=== PATIENT | male | born 1980 | race Caucasian/White ===

== ENCOUNTER 2021-12-24 03:53 | Inpatient (IN) ==
[2021-12-24] MEDS ORDERED: IOPAMIDOL 100 ML BOTTLE IV ONE (03:54)
[2021-12-24] MEDS ORDERED: cefTRIAXone 2 GM VIAL IM ONE (04:06)
[2021-12-24] MEDS ORDERED: 0.9 % SODIUM CHLORIDE 500 ML IV ONE (04:07)
--- NOTE | 2021-12-24 04:11 | Emergency Department Note ---
Male Urogenital HPI General Chief complaint: Skin/Abscess/Rash Stated complaint: cellulitis not going away Time Seen by Provider: 12/24/21 04:01 Source: patient Mode of arrival: ambulatory Limitations: no limitations History of Present Illness HPI Narrative: Narrative: Patient presents ED with complaints of worsening swelling of his penis and testicles x3 weeks. Patient states that a little over 2 weeks ago he was diagnosed with an infection of his scrotum. He states he completed antibiotics 2 days ago. He reports that the swelling got worse as well as the redness of his penis and of his abdomen. He denies fever, chills, nausea, vomiting, abdominal pain, dysuria, hematuria, urinary frequency, diarrhea, constipation. In reviewing patient's chart he had an ultrasound which was concerning for epididymitis. He was prescribed doxycycline 100 mg p.o. twice daily x10 days. He was supposed to follow-up with his PCP which he states he has not. In talking with patient is hard for him to keep his eyes open and follow direction. He appears to be intoxicated. He is a known methamphetamine user but he is denying use today. He also denies alcohol use today. Patient [place] any other alleviating or aggravating factors. Related Data Previous Rx's Medication Instructions Recorded furosemide 40 mg tablet 40 mg PO QDAY #30 tabs 12/24/20 lansoprazole 30 mg capsule,delayed 30 mg PO QDAY #30 caps 08/01/21 release (Prevacid) doxycycline monohydrate 100 mg 100 mg PO BID #20 caps 12/06/21 capsule Allergies Allergy/AdvReac Type Severity Reaction Status Date / Time No Known Drug Allergies Allergy Verified 12/02/21 11:52 Review of Systems ROS ROS Narrative: Narrative: All systems ED: reviewed and negative except as stated. [facility] Narrative Patient History Narrative: Narrative: Medical/Surgical/Family History All Active Problems (Updated 12/24/21 @ 10:42 by Reji Estrada DO) Laceration of finger of left hand (Acute) Fracture of hand (Acute) Toothache (Acute) Acute dyspnea (Acute) CHF (congestive heart failure) (Acute) Acute chest pain (Acute) Amphetamine abuse (Acute) Dyspepsia (Acute) Cellulitis (Acute) Left leg cellulitis (Acute) Rash and nonspecific skin eruption (Acute) Acute exacerbation of CHF (congestive heart failure) (Acute) History of amphetamine abuse (Acute) Edema, peripheral (Acute) Cellulitis of scrotum (Acute) Bilateral epididymitis (Acute) Sepsis (Acute) Cellulitis of scrotum (Acute) Edema of scrotum (Acute) Penile edema (Acute) Medical History Fracture of hand Laceration of finger of left hand Social History Smoking Status: Never smoker Exam Narrative Narrative: Narrative: General Limitations: no limitations General appearance: Present appears intoxicated Respiratory Respiratory: Present normal lung sounds bilaterally; Absent respiratory distress Cardiovascular Cardiovascular: Present normal rhythm and tachycardia Adbominal Abdominal: Present soft, tenderness, normal bowel sounds and other (Erythema on his abdomen with no tenderness palpation or warmth) : Present testicular tenderness, scrotal swelling (Severe) and other (Severe penile swelling); Absent circumcised Expanded : Present penile swelling and erythema Scrotal exam: testicular tenderness: bilateral Extremities Extremities: Present normal capillary refill Neurological Neurological: Present oriented X3 and normal gait Psychiatric Psychiatric: Present serious and poor eye contact Skin Skin: Present warm (WNL) and intact Course Course Course Narrative: Patient was evaluated for scrotal edema and redness. Physical and consistent with cellulitis. Did get a CT of the abdomen and pelvis with image reviewed mys elf with no signs of necrotizing fasciitis or gangrene. There is no crepitus in the area on exam. Ultrasound was obtained and could not really visualize the epididymis. Patient did meet sepsis criteria with leukocytosis, elevated lactic acid, tachycardic and source of infection. Due to his CHF we did not do 30 mL/kg of fluid instead we just did 1500. Did give him 80 mg of IV Lasix. Blood cultures were obtained and patient was started on IV vancomycin and Rocephin. Must be noted that throughout the stay patient was very hard to tolerate as he was combative and refusing treatment and excepting treatment. Again he does seem to be intoxicated with amphetamines. Patient was discussed with on-call hospitalist who has agreed to admit the patient for sepsis secondary to scrotal cellulitis and penile edema. Plan of care was discussed with patient expressed verbal understanding and agreement. Reevaluation(s) Reevaluation #1: Patient remains hemodynamic stable. No new complaints at this time. Time: 05:30 Consultations Consultation #1: Case discussed with hospitalist, Dr. Perales, who is graciously excepted patient Time: 10:30 Vital Signs Vital signs: Vital Signs Temperature 97.7 F 12/24/21 03:54 Pulse Rate 127 H 12/24/21 03:54 Respiratory Rate 17 12/24/21 03:54 Blood Pressure 123/83 12/24/21 03:54 Pulse Oximetry (%) 95 12/24/21 03:54 Oxygen Delivery Method 12/24/21 03:54 Temperature 97.7 F 12/24/21 03:54 Pulse Rate 118 H 12/24/21 09:34 Respiratory Rate 24 H 12/24/21 06:57 Blood Pressure 158/106 12/24/21 09:34 Pulse Oximetry (%) 93 12/24/21 09:34 Oxygen Delivery Method 12/24/21 03:54 MDM MDM Narrative Medical decision making narrative: Narrative: Differential Diagnosis Differential Diagnosis: Foreign years gangrene, epididymitis, scrotal swelling Medical Records Medical records reviewed: Yes I reviewed the patient's medical records. Lab Data Lab results reviewed: Yes I reviewed the patient's lab results. Result diagrams: 12/24/21 04:40 Labs: Lab Results 12/24/21 12/24/21 12/24/21 Range/Units 04:40 04:40 04:40 WBC 14.3 H (4.5-11.0) K/mcL RBC 4.91 (4.63-6.08) M/mcL Hgb 13.7 (13.7-17.5) g/dL Hct 44.2 (40.1-51.0) % POC Hct (41-55) MCV 90.0 (80.0-100.0) fL MCH 27.9 (26.0-34.0) pg MCHC 31.0 (31.0-36.0) g/dL RDW 16.8 H (11.5-14.5) % Plt Count 288 (140-440) K/mcL MPV 9.5 (8.8-12.5) fL Immature Gran % (Auto) 0.6 H (0.0-0.5) % Neut % (Auto) 81.1 H (38.0-78.0) % Lymph % (Auto) 12.2 L (15.5-49.0) % [place] % (Auto) 5.9 (1.0-12.0) % Eos % (Auto) 0.1 (0.0-7.0) % Baso % (Auto) 0.1 (0.0-2.0) % Lymph # (Auto) 1.74 (1.50-4.80) K/mcL [place] # (Auto) 0.84 (0.10-0.90) K/mcL Eos # (Auto) 0.01 (0.00-0.70) K/mcL Baso # (Auto) 0.02 (0.00-0.30) K/mcL Immature Gran # 0.09 H (0.00-0.05) K/mcl Absolute Neutrophils 11.58 H (1.80-8.00) K/mcL POC VBG pH (7.32-7.42) POC VBG pCO2 at Temp (41-51) POC VBG pO2 (25-40) POC VBG HCO3 (24-28) POC VBG Total CO2 (25-29) POC Venous O2 Sat (40-70) POC VBG Base Excess (-2-2) VBG Lactic Acid (0.5-2) POC Sodium (133-145) POC Potassium (3.3-5.1) POC Chloride (96-108) POC Total CO2 (22-30) POC BUN (6-20) POC Creatinine (0.6-1.2) POC Glucose (70-105) POC WB Ioniz Calcium (1.16-1.32) Procalcitonin 0.46 H (<0.10) ng/mL Urine Color Urine Appearance (Clear) Urine pH (5.0-9.0) Ur Specific [place] (1.000-1.035) Urine Protein (Negative) mg/dL Urine Glucose (UA) (Negative) mg/dL Urine Ketones (Negative) mg/dL Urine Occult Blood (Negative) mg/dL Urine Nitrate (Negative) Urine Bilirubin (Negative) mg/dL Urine Urobilinogen mg/dL Ur Leukocyte Esterase (Negative) /uL Urine RBC (0-3) /hpf Urine WBC (0-4) /hpf Ur Squamous Epith Cells (0-4) /hpf Urine Bacteria (0) /hpf Ur Culture Indicated? Urine Opiates Screen Ur Oxycodone Screen Urine Methadone Screen Ur Barbiturates Screen Ur Phencyclidine Scrn Ur Amphetamines Screen U Benzodiazepines Scrn Urine Cocaine Screen U Marijuana (THC) Screen Ethyl Alcohol mg/dL < 10.0 mg/dL Ethyl Alcohol g/dL < 0.010 (<0.010) gm/dL 12/24/21 12/24/21 12/24/21 Range/Units 04:40 04:41 07:25 WBC (4.5-11.0) K/mcL RBC (4.63-6.08) M/mcL Hgb (13.7-17.5) g/dL Hct (40.1-51.0) % POC Hct 47.0 (41-55) MCV (80.0-100.0) fL MCH (26.0-34.0) pg MCHC (31.0-36.0) g/dL RDW (11.5-14.5) % Plt Count (140-440) K/mcL MPV (8.8-12.5) fL Immature Gran % (Auto) (0.0-0.5) % Neut % (Auto) (38.0-78.0) % Lymph % (Auto) (15.5-49.0) % [place] % (Auto) (1.0-12.0) % Eos % (Auto) (0.0-7.0) % Baso % (Auto) (0.0-2.0) % Lymph # (Auto) (1.50-4.80) K/mcL [place] # (Auto) (0.10-0.90) K/mcL Eos # (Auto) (0.00-0.70) K/mcL Baso # (Auto) (0.00-0.30) K/mcL Immature Gran # (0.00-0.05) K/mcl Absolute Neutrophils (1.80-8.00) K/mcL POC VBG pH 7.47 H (7.32-7.42) POC VBG pCO2 at Temp 36.4 L (41-51) POC VBG pO2 23 L (25-40) POC VBG HCO3 26.4 (24-28) POC VBG Total CO2 27.0 (25-29) POC Venous O2 Sat 46.0 (40-70) POC VBG Base Excess 3.0 H (-2-2) VBG Lactic Acid 3.4 H (0.5-2) POC Sodium 131 L (133-145) POC Potassium 5.4 H (3.3-5.1) POC Chloride 98 (96-108) POC Total CO2 26.0 (22-30) POC BUN 26 H (6-20) POC Creatinine 1.6 H (0.6-1.2) POC Glucose 94 (70-105) POC WB Ioniz Calcium 1.01 L (1.16-1.32) Procalcitonin (<0.10) ng/mL Urine Color Urine Appearance (Clear) Urine pH (5.0-9.0) Ur Specific [place] (1.000-1.035) Urine Protein (Negative) mg/dL Urine Glucose (UA) (Negative) mg/dL Urine Ketones (Negative) mg/dL Urine Occult Blood (Negative) mg/dL Urine Nitrate (Negative) Urine Bilirubin (Negative) mg/dL Urine Urobilinogen mg/dL Ur Leukocyte Esterase (Negative) /uL Urine RBC (0-3) /hpf Urine WBC (0-4) /hpf Ur Squamous Epith Cells (0-4) /hpf Urine Bacteria (0) /hpf Ur Culture Indicated? Urine Opiates Screen None detected Ur Oxycodone Screen None detected Urine Methadone Screen None detected Ur Barbiturates Screen None detected Ur Phencyclidine Scrn None detected Ur Amphetamines Screen Suspect positive A U Benzodiazepines Scrn None detected Urine Cocaine Screen None detected U Marijuana (THC) Screen None detected Ethyl Alcohol mg/dL mg/dL Ethyl Alcohol g/dL (<0.010) gm/dL 12/24/21 12/24/21 12/24/21 Range/Units 07:25 07:30 08:13 WBC (4.5-11.0) K/mcL RBC (4.63-6.08) M/mcL Hgb (13.7-17.5) g/dL Hct (40.1-51.0) % POC Hct (41-55) MCV (80.0-100.0) fL MCH (26.0-34.0) pg MCHC (31.0-36.0) g/dL RDW (11.5-14.5) % Plt Count (140-440) K/mcL MPV (8.8-12.5) fL Immature Gran % (Auto) (0.0-0.5) % Neut % (Auto) (38.0-78.0) % Lymph % (Auto) (15.5-49.0) % [place] % (Auto) (1.0-12.0) % Eos % (Auto) (0.0-7.0) % Baso % (Auto) (0.0-2.0) % Lymph # (Auto) (1.50-4.80) K/mcL [place] # (Auto) (0.10-0.90) K/mcL Eos # (Auto) (0.00-0.70) K/mcL Baso # (Auto) (0.00-0.30) K/mcL Immature Gran # (0.00-0.05) K/mcl Absolute Neutrophils (1.80-8.00) K/mcL POC VBG pH 7.48 H (7.32-7.42) POC VBG pCO2 at Temp 36.9 L (41-51) POC VBG pO2 21 L (25-40) POC VBG HCO3 27.5 (24-28) POC VBG Total CO2 29.0 (25-29) POC Venous O2 Sat 40.0 (40-70) POC VBG Base Excess 4.0 H* (-2-2) VBG Lactic Acid 3.0 H 3.7 H (0.5-2) POC Sodium (133-145) POC Potassium (3.3-5.1) POC Chloride (96-108) POC Total CO2 (22-30) POC BUN (6-20) POC Creatinine (0.6-1.2) POC Glucose (70-105) POC WB Ioniz Calcium (1.16-1.32) Procalcitonin (<0.10) ng/mL Urine Color Yellow Urine Appearance Hazy A (Clear) Urine pH 7.0 (5.0-9.0) Ur Specific [place] 1.006 (1.000-1.035) Urine Protein Negative (Negative) mg/dL Urine Glucose (UA) Negative (Negative) mg/dL Urine Ketones Negative (Negative) mg/dL Urine Occult Blood 0.20 (Negative) mg/dL Urine Nitrate Negative (Negative) Urine Bilirubin Negative (Negative) mg/dL Urine Urobilinogen Negative mg/dL Ur Leukocyte Esterase 500 A (Negative) /uL Urine RBC 1 (0-3) /hpf Urine WBC 7 H (0-4) /hpf Ur Squamous Epith Cells 5 H (0-4) /hpf Urine Bacteria None (0) /hpf Ur Culture Indicated? No Urine Opiates Screen Ur Oxycodone Screen Urine Methadone Screen Ur Barbiturates Screen Ur Phencyclidine Scrn Ur Amphetamines Screen U Benzodiazepines Scrn Urine Cocaine Screen U Marijuana (THC) Screen Ethyl Alcohol mg/dL mg/dL Ethyl Alcohol g/dL (<0.010) gm/dL Core Measures AMI Core Measures Followed: Yes Discharge Plan Patient/Caregiver Discharge Instructions Pt seen by [employer]/PA only: No Clinical Impression: Sepsis, Cellulitis of scrotum, Edema of scrotum, Penile edema Patient Disposition: Xfer As Outpt/Obs ([facility]) Condition: Fair Follow up with: No,PCP [Primary Care Provider] - Prescriptions: No Action furosemide 40 mg tablet 40 mg PO QDAY Qty: 30 0RF lansoprazole [Prevacid] 30 mg capsule,delayed release(DR/EC) 30 mg PO QDAY Qty: 30 0RF doxycycline monohydrate 100 mg capsule 100 mg PO BID Qty: 20 0RF
[2021-12-24 04:45] LABS: POC Calcium, Ionized 1.01 (1.16-1.32); POC Creatinine 1.6 (0.6-1.2); POC Potassium 5.4 (3.3-5.1)
[2021-12-24] MEDS ORDERED: FUROSEMIDE 40 MG/4 ML VIAL IV ONE ×2 (04:58→07:10)
[2021-12-24 05:20] LABS: Basophils # (Auto) 0.02 K/mcL (0.00-0.30); Basophils % (Auto) 0.1 % (0.0-2.0); Eosinophils # (Auto) 0.01 K/mcL (0.00-0.70); Eosinophils % (Auto) 0.1 % (0.0-7.0); Hematocrit 44.2 % (40.1-51.0); Hemoglobin 13.7 g/dL (13.7-17.5); Lymphocytes # (Auto) 1.74 K/mcL (1.50-4.80); Lymphocytes % (Auto) 12.2 % (15.5-49.0); Mean Platelet Volume 9.5 fL (8.8-12.5); Monocytes # (Auto) 0.84 K/mcL (0.10-0.90); Monocytes % (Auto) 5.9 % (1.0-12.0); Neutrophils % (Auto) 81.1 % (38.0-78.0); Platelet Count 288 K/mcL (140-440); RBC 4.91 M/mcL (4.63-6.08); Red Cell Distribution Width 16.8 % (11.5-14.5); WBC 14.3 K/mcL (4.5-11.0)
[2021-12-24 05:33] LABS: Alcohol, Blood < 10.0 mg/dL; Alcohol,Blood < 0.010 gm/dL (<0.010)
[2021-12-24] MEDS ORDERED: 0.9 % SODIUM CHLORIDE 1,000 ML IV ONE (06:04)
[2021-12-24] MEDS ORDERED: cefTRIAXone 2 GM in DEXTROSE 5% IN WATER 50 ML IV ONE (06:04)
[2021-12-24] MEDS ORDERED: VANCOMYCIN 1,000 MG in 0.9 % SODIUM CHLORIDE 250 ML IV ONE (06:04)
[2021-12-24] MEDS ORDERED: VANCOMYCIN 2,000 MG in 0.9 % SODIUM CHLORIDE 500 ML IV ONE (06:27)
--- NOTE | 2021-12-24 07:06 | Cat Scan Report ---
INDICATION: abd and scotral cellulitis and edema COMPARISON: Previous scrotal ultrasound dated 12/06/2021 TECHNIQUE: Axial images were obtained through the abdomen and pelvis. Sagittally and coronally reformatted images. 80 mL Isovue 370 injected intravenously. Oral contrast material was not administered FINDINGS: Lung bases:There is generalized cardiomegaly. There is no pericardial effusion. No pleural effusion. There are pulmonary parenchymal densities at the right base. There are small noncalcified nodules. No parenchymal consolidation. No evidence for pneumonia Liver:Mildly low density liver compared to the spleen. Liver contour is smooth. No nodularity. There is no focal hepatic mass. Gallbladder, bilary:No calcified gallstones. No gallbladder wall thickening. No dilated intra or extrahepatic bile ducts. Spleen:No splenomegaly. Normal enhancement of splenic and portal veins. Pancreas:No pancreatic mass. No peripancreatic abnormality Adrenal glands:Negative Kidneys,ureters,bladder:No solid renal mass. No hydronephrosis. No obstructing or nonobstructing calculi. There is a 4 cm left upper pole renal cyst No hydroureter. No ureteral calculus. No bladder stone. No detectable bladder mass. Gastrointestinal:No detectable colonic mass. There is no diverticulitis. Negative small bowel. No mechanical small bowel obstruction. No bowel wall thickening. No focal abnormality. There is no evidence for bowel ischemia Negative stomach and duodenum. No focal abnormality. Appendix: The appendix is difficult to visualize but there is no evidence for appendicitis Vascular:Abdominal aorta is negative. No atherosclerotic calcification. There is no abdominal aortic aneurysm. Superior mesenteric artery and inferior mesenteric artery appear normal. There is luminal irregularity of the celiac trunk. There is luminal narrowing at but a well-defined stenosis is not identified. Celiac trunk is patent. There is no significant atherosclerotic plaque elsewhere. Vasculitis is possible. Clinical correlation for symptoms of mesenteric ischemia are recommended. Left renal artery is also slightly irregular but patent. Vasculitis is possible Lymphatic:No retroperitoneal or mesenteric adenopathy Mesentery, peritoneum: There is free intraperitoneal fluid. There is perihepatic and perisplenic fluid. There is a small amount of pelvic fluid. There is fluid within the right lower quadrant. There is no discrete intra-abdominal abscess. There is no pneumoperitoneum Reproductive:Prostate is enlarged Musculoskeletal:No lumbar compression fractures. Sacrum and pelvis are negative. No hip fracture. There is extensive subcutaneous edema throughout the lower chest, abdomen, and pelvis. No focal subcutaneous abscess identified. There is very severe subcutaneous edema within the scrotum with severe scrotal enlargement. Findings are consistent with anasarca. A focal abscess is not identified. There is no soft tissue gas. No evidence for necrotizing fasciitis IMPRESSION: 1. Severe and extensive subcutaneous edema with marked scrotal edema and enlargement. No soft tissue gas or focal abscess. No evidence for necrotizing fasciitis 2. Free intraperitoneal fluid. No focal fluid collection. No intra-abdominal abscess 3. Irregularity of the celiac trunk and left renal artery. Vasculitis is possible. 4. Low density liver without focal intrahepatic abnormality The exam was performed using radiation dose optimization techniques including, but not limited to, automated exposure control, adjustment of the mA and/or kV according to patient size and use of iterative reconstruction technique. Interpreted and Authenticated by: Tim Bolden 12/24/21
[2021-12-24 08:55] LABS: Amphetamine Screen,Urine Suspect positive; Barbiturate Screen,Urine None detected; Benzodiazepines Screen,Urine None detected; Cannabinoid Screen,Urine None detected; Cocaine Screen,Urine None detected; Opiate Screen,Urine None detected; Oxycodone, Urine Screen None detected; Phencyclidine Screen,Urine None detected
[2021-12-24 09:25] LABS: Appearance,Urine HAZY (Clear); Bilirubin,Urine Negative (Negative); Color,Urine YELLOW; Culture Indicated,Urine No; Glucose,Urine (UA) Negative (Negative); Ketones,Urine Negative (Negative); Leukocyte Esterase,Urine 500 /uL (Negative); Nitrate,Urine Negative (Negative); Protein,Urine Negative (Negative); Specific Gravity,Urine 1.006 (1.000-1.035); Urine RBC 1 /hpf (0-3); Urine Squamous Epithelial Cell 5 /hpf (0-4); Urine WBC 7 /hpf (0-4); Urobilinogen,Urine Negative
--- NOTE | 2021-12-24 09:36 | Ultrasound Report ---
INDICATION: swelling, tenderness TECHNIQUE: Grayscale and color flow Doppler spectral imaging COMPARISON: Previous examination dated 12/06/2021 FINDINGS: Right Epididymis: Right epididymis [id number] x 15 x 8 mm.. Epididymis is suboptimally visualized. There is no hypervascularity. No focal abnormality. Right Testicle: Right testicle measures4.5 x 2.7 x 3.0 cm Normal right testicular parenchyma. No solid or cystic mass. Normal vascularity. No evidence for orchitis. Left Epididymis: Left epididymis [id number] x 14 x 9 mm epididymis is suboptimally visualized and evaluated. There is no hypervascularity. No focal abnormality Left Testicle: Left testicle measures4.5 x 3.0 x 2.6 cm Normal left testicular parenchyma. No solid or cystic mass. Normal vascularity. No evidence for orchitis. Scrotal: There is severe diffuse scrotal edema and thickening. No focal abscess. No focal mass. No shadowing abnormalities to indicate gas. Appearance is consistent with scrotal edema or cellulitis. No significant hydrocele. IMPRESSION: 1. Normal testicles. Epididymis is suboptimally evaluated bilaterally but there is no definite abnormality 2. Severe scrotal edema or cellulitis and marked scrotal thickening. Interpreted and Authenticated by: Tim Bolden 12/24/21
--- NOTE | 2021-12-24 11:11 | Internal Med History&Physical ---
HPI History of Present Illness Patient information: Note initiated : 12/24/21 at 10:59 am Service Date, if different from initiated Date: [] Patient: Wilner Romero 41 y/o M admitted on for cellulitis not going away. Chief Complaint: [abdominal and scrotal swelling and pain] Chief complaint: abdominal and scrotal swelling and pain History of present illness: Mr. Romero is a 41 year old M history of meth use, CHF, presenting with abdominal and scrotal swelling and pain. He presented to our ED 2 weeks ago for similar complaints, was being diagnosed with bilateral epididymis, and was being discharged home with oral doxycycline. He stated that he finished the antibiotics but the swelling and pain persist and get worse so he returned to our ED today for reevaluation and treatments. He is committing of lower abdominal and scrotal swelling and pain, the nature of the pain is " distention", mild to moderate. He denies any fever, chills, or diaphoresis. He is also commenting of bilateral leg swellings. He is adamant about his methamphetamine use and he did smoke it earlier this morning. Denies any shortness of breath. Denies any chest pain or palpitations. Vital signs significant for tachycardia heart rate in the 1 teens beats per minute, tachypnea rate of breathing up to the mid 30s breaths per minute. Labs significant for leukocytosis with WBC 14.3. Lactic acid 3.0. Potasssium 5.4. PCO creatinine 1.6. Procalcitonin 0.46. UA suggesting the presence of urinary tract infections. Urine drug screen positive for methamphetamine. CT abdomen pelvis showing severe and extensive subcutaneous edema with marked scrotal edema and enlargement. No soft tissue gas or focal abscess. No evidence for necrotizing fasciitis. Scrotal ultrasound showing normal testicles. Epididymis is suboptimally evaluated bilaterally but there is no definite abnormalities. Severe scrotal edema or cellulitis and marked scrotal thickening. Constitutional Constitutional: Absent chills, excessive sweating, fatigue, fever(s) or weakness EENT Eyes: Absent blurry vision, change in vision, loss of vision or other visual disturbances Ears: Absent decreased hearing or tinnitus Nose, mouth and throat: Absent abnormal hearing, dry mouth, headache(s), nasal congestion or sore throat Cardiovascular Cardiovascular: Absent chest pain, chest pain at rest, edema, irregular heart rhythm or palpatations Respiratory Respiratory: Absent cough, dyspnea or wheezing Gastrointestinal Gastrointestinal: Present abdominal pain; Absent constipation, diarrhea, nausea or vomiting Additional comments: abdominal distension Genitourinary Additional comments: Scrotal pain and swelling Musculoskeletal Musculoskeletal: Absent back pain, deformity, limited range of motion, muscle cramps, muscle weakness or numbness Integumentary Integumentary: Absent lesions, rash or wounds Neurological Neurological: Absent focal weakness, headache(s) or numbness Psychiatric Psychiatric: Absent anxiety, depression or hallucinations PFSH PFSH All Active Problems (Updated 12/24/21 @ 11:07 by Placido Perales MD) Obesity (BMI 35.0-39.9 without comorbidity) (Acute) Hyperkalemia (Acute) Stage 1 acute kidney injury (Acute) UTI (urinary tract infection) (Acute) Methamphetamine abuse (Acute) Clinical sepsis (Acute) Laceration of finger of left hand (Acute) Fracture of hand (Acute) Toothache (Acute) Acute dyspnea (Acute) CHF (congestive heart failure) (Acute) Acute chest pain (Acute) Amphetamine abuse (Acute) Dyspepsia (Acute) Cellulitis (Acute) Left leg cellulitis (Acute) Rash and nonspecific skin eruption (Acute) Acute exacerbation of CHF (congestive heart failure) (Acute) History of amphetamine abuse (Acute) Edema, peripheral (Acute) Cellulitis of scrotum (Acute) Bilateral epididymitis (Acute) Sepsis (Acute) Cellulitis of scrotum (Acute) Edema of scrotum (Acute) Penile edema (Acute) Medical History Fracture of hand Laceration of finger of left hand Social History smoking status: Never smoker MEDS/ALLERGIES Home Medications and Allergies Home Medications Medication Instructions Recorded Confirmed Type furosemide 40 mg tablet 40 mg PO QDAY #30 tabs 12/24/20 Rx lansoprazole 30 mg capsule,delayed 30 mg PO QDAY #30 caps 08/01/21 Rx release (Prevacid) doxycycline monohydrate 100 mg 100 mg PO BID #20 caps 12/06/21 Rx capsule Allergies Allergy/AdvReac Type Severity Reaction Status Date / Time No Known Drug Allergies Allergy Verified 12/02/21 11:52 EXAM Constitutional Vitals: Temp Pulse Resp BP Pulse Ox O2 Del Method 36.5 C 118 H 24 H 158/106 93 12/24/21 03:54 12/24/21 09:34 12/24/21 06:57 12/24/21 09:34 12/24/21 09:34 12/24/21 03:54 General appearance: cooperative, mild distress and obese Head Head exam: Present atraumatic and normocephalic Eye Eye exam: Present EOMI and PERRL ENT ENT exam: Present mucous membranes moist, normal exam and normal external ear exam Neck Neck exam: Present normal inspection; Absent lymphadenopathy, tenderness or thyromegaly Respiratory Respiratory exam: Absent accessory muscle use, respiratory distress or wheezes Cardiovascular Cardiovascular exam: Present normal rate and rhythm; Absent JVD GI/Abdominal GI/Abdominal exam: Present normal bowel sounds, soft, distended and tenderness; Absent organomegaly Rectal Rectal exam: Present deferred exam: Present scrotal swelling and testicular tenderness; Absent normal inspection External exam: Present erythema and swelling; Absent normal external exam Extremities Exam Extremities exam: Present full ROM, normal capillary refill, normal inspection and pedal edema; Absent tenderness Neurological Exam Neurological exam: Present alert, CN II-XII intact and oriented X3; Absent motor sensory deficit Psychiatric Psychiatric exam: Present normal affect and normal mood; Absent anxious or depressed Skin Skin exam: Present dry, erythema, intact and warm; Absent abrasion or vesicles DATA Data Completed and Pending Labs: Labs from last 24 hours 12/24/21 12/24/21 12/24/21 10:50 08:13 07:30 WBC RBC Hgb Hct POC Hct MCV MCH MCHC RDW Plt Count MPV Immature Gran % (Auto) Neut % (Auto) Lymph % (Auto) Gage % (Auto) Eos % (Auto) Baso % (Auto) Lymph # (Auto) Gage # (Auto) Eos # (Auto) Baso # (Auto) Immature Gran # Absolute Neutrophils POC VBG pH 7.48 H POC VBG pCO2 at Temp 36.9 L POC VBG pO2 21 L POC VBG HCO3 27.5 POC VBG Total CO2 29.0 POC Venous O2 Sat 40.0 POC VBG Base Excess 4.0 H* VBG Lactic Acid Pending 3.7 H 3.0 H POC Sodium POC Potassium POC Chloride POC Total CO2 POC BUN POC Creatinine POC Glucose POC WB Ioniz Calcium Procalcitonin Urine Color Urine Appearance Urine pH Ur Specific Lang[place] Urine Protein Urine Glucose (UA) Urine Ketones Urine Occult Blood Urine Nitrate Urine Bilirubin Urine Urobilinogen Ur Leukocyte Esterase Urine RBC Urine WBC Ur Squamous Epith Cells Urine Bacteria Ur Culture Indicated? Urine Opiates Screen Ur Opiates Confirm Ur Oxycodone Screen U Oxycod/Oxymor Confirm Urine Methadone Screen Ur Methadone Confirm Ur Barbiturates Screen Ur Barbiturate Confirm Ur Phencyclidine Scrn Urine PCP Confirm Ur Amphetamines Screen U Amphetamines Confirm U Benzodiazepines Scrn Ur Benzodiazepine, Qnt Urine Cocaine Screen Urine Cocaine Confirm U Cannabinoids Confirm U Marijuana (THC) Screen Ethyl Alcohol mg/dL Ethyl Alcohol g/dL 12/24/21 12/24/21 12/24/21 07:25 07:25 04:41 WBC RBC Hgb Hct POC Hct MCV MCH MCHC RDW Plt Count MPV Immature Gran % (Auto) Neut % (Auto) Lymph % (Auto) Gage % (Auto) Eos % (Auto) Baso % (Auto) Lymph # (Auto) Gage # (Auto) Eos # (Auto) Baso # (Auto) Immature Gran # Absolute Neutrophils POC VBG pH 7.47 H POC VBG pCO2 at Temp 36.4 L POC VBG pO2 23 L POC VBG HCO3 26.4 POC VBG Total CO2 27.0 POC Venous O2 Sat 46.0 POC VBG Base Excess 3.0 H VBG Lactic Acid 3.4 H POC Sodium POC Potassium POC Chloride POC Total CO2 POC BUN POC Creatinine POC Glucose POC WB Ioniz Calcium Procalcitonin Urine Color Yellow Urine Appearance Hazy A Urine pH 7.0 Ur Specific Lang[place] 1.006 Urine Protein Negative Urine Glucose (UA) Negative Urine Ketones Negative Urine Occult Blood 0.20 Urine Nitrate Negative Urine Bilirubin Negative Urine Urobilinogen Negative Ur Leukocyte Esterase 500 A Urine RBC 1 Urine WBC 7 H Ur Squamous Epith Cells 5 H Urine Bacteria None Ur Culture Indicated? No Urine Opiates Screen None detected Ur Opiates Confirm Pending Ur Oxycodone Screen None detected U Oxycod/Oxymor Confirm Pending Urine Methadone Screen None detected Ur Methadone Confirm Pending Ur Barbiturates Screen None detected Ur Barbiturate Confirm Pending Ur Phencyclidine Scrn None detected Urine PCP Confirm Pending Ur Amphetamines Screen Suspect positive A U Amphetamines Confirm Pending U Benzodiazepines Scrn None detected Ur Benzodiazepine, Qnt Pending Urine Cocaine Screen None detected Urine Cocaine Confirm Pending U Cannabinoids Confirm Pending U Marijuana (THC) Screen None detected Ethyl Alcohol mg/dL Ethyl Alcohol g/dL 12/24/21 12/24/21 12/24/21 04:40 04:40 04:40 WBC RBC Hgb Hct POC Hct 47.0 MCV MCH MCHC RDW Plt Count MPV Immature Gran % (Auto) Neut % (Auto) Lymph % (Auto) Gage % (Auto) Eos % (Auto) Baso % (Auto) Lymph # (Auto) Gage # (Auto) Eos # (Auto) Baso # (Auto) Immature Gran # Absolute Neutrophils POC VBG pH POC VBG pCO2 at Temp POC VBG pO2 POC VBG HCO3 POC VBG Total CO2 POC Venous O2 Sat POC VBG Base Excess VBG Lactic Acid POC Sodium 131 L POC Potassium 5.4 H POC Chloride 98 POC Total CO2 26.0 POC BUN 26 H POC Creatinine 1.6 H POC Glucose 94 POC WB Ioniz Calcium 1.01 L Procalcitonin 0.46 H Urine Color Urine Appearance Urine pH Ur Specific [place] Urine Protein Urine Glucose (UA) Urine Ketones Urine Occult Blood Urine Nitrate Urine Bilirubin Urine Urobilinogen Ur Leukocyte Esterase Urine RBC Urine WBC Ur Squamous Epith Cells Urine Bacteria Ur Culture Indicated? Urine Opiates Screen Ur Opiates Confirm Ur Oxycodone Screen U Oxycod/Oxymor Confirm Urine Methadone Screen Ur Methadone Confirm Ur Barbiturates Screen Ur Barbiturate Confirm Ur Phencyclidine Scrn Urine PCP Confirm Ur Amphetamines Screen U Amphetamines Confirm U Benzodiazepines Scrn Ur Benzodiazepine, Qnt Urine Cocaine Screen Urine Cocaine Confirm U Cannabinoids Confirm U Marijuana (THC) Screen Ethyl Alcohol mg/dL < 10.0 Ethyl Alcohol g/dL < 0.010 12/24/21 04:40 WBC 14.3 H RBC 4.91 Hgb 13.7 Hct 44.2 POC Hct MCV 90.0 MCH 27.9 MCHC 31.0 RDW 16.8 H Plt Count 288 MPV 9.5 Immature Gran % (Auto) 0.6 H Neut % (Auto) 81.1 H Lymph % (Auto) 12.2 L Gage % (Auto) 5.9 Eos % (Auto) 0.1 Baso % (Auto) 0.1 Lymph # (Auto) 1.74 Gage # (Auto) 0.84 Eos # (Auto) 0.01 Baso # (Auto) 0.02 Immature Gran # 0.09 H Absolute Neutrophils 11.58 H POC VBG pH POC VBG pCO2 at Temp POC VBG pO2 POC VBG HCO3 POC VBG Total CO2 POC Venous O2 Sat POC VBG Base Excess VBG Lactic Acid POC Sodium POC Potassium POC Chloride POC Total CO2 POC BUN POC Creatinine POC Glucose POC WB Ioniz Calcium Procalcitonin Urine Color Urine Appearance Urine pH Ur Specific [place] Urine Protein Urine Glucose (UA) Urine Ketones Urine Occult Blood Urine Nitrate Urine Bilirubin Urine Urobilinogen Ur Leukocyte Esterase Urine RBC Urine WBC Ur Squamous Epith Cells Urine Bacteria Ur Culture Indicated? Urine Opiates Screen Ur Opiates Confirm Ur Oxycodone Screen U Oxycod/Oxymor Confirm Urine Methadone Screen Ur Methadone Confirm Ur Barbiturates Screen Ur Barbiturate Confirm Ur Phencyclidine Scrn Urine PCP Confirm Ur Amphetamines Screen U Amphetamines Confirm U Benzodiazepines Scrn Ur Benzodiazepine, Qnt Urine Cocaine Screen Urine Cocaine Confirm U Cannabinoids Confirm U Marijuana (THC) Screen Ethyl Alcohol mg/dL Ethyl Alcohol g/dL A/P Assessment and plan (1) Clinical sepsis: Status: Acute (2) CHF (congestive heart failure): Status: Acute (3) Methamphetamine abuse: Status: Acute (4) Cellulitis of scrotum: Status: Acute (5) UTI (urinary tract infection): Status: Acute (6) Stage 1 acute kidney injury: Status: Acute (7) Hyperkalemia: Status: Acute (8) Obesity (BMI 35.0-39.9 without comorbidity): Status: Acute Narrative A/P Narrative: Assessment and Plans: 1. Clinical sepsis secondary to scrotal cellulitis and UTI: Inpatient med surg Serial lactic acid Procalcitonin Blood culture Urine culture MRSA screening cbc w/ auto diff in the morning to trend WBC Tylenol Oxycodone Dilaudid Vancomycin Zosyn 2. h/o CHF: Lasix 20mg IV BID for the abdominal, scrotal, and bilateral legs swelling 3. Stage 1 acute kidney injury: Avoid nephrotoxic agents Saline lock with Lasix CMP in the morning to trend kidney functions 4. Methamphetamine abuse: Continue to monitor for any associated withdrawal symptoms 5. 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 Hyperkalemia: Lasix 20mg IV BID Repeat CMP in the morning to trend serum potassium level GI ppx: not currently indicated DVT ppx: Heparin Code status: Full Prognosis: guarded Disposition: inpatient med surg Time Spent With Patient Time: Total time spent is greater than 50% in coordination of care (as documented) at patient's floor/unit and/or counseling patient:
[2021-12-24] MEDS ORDERED: KETOROLAC 30 MG/ML VIAL IV PRN (12:44)
[2021-12-24] MEDS ORDERED: ONDANSETRON 4 MG/2 ML VIAL IV PRN (12:44)
[2021-12-24] MEDS ORDERED: VANCOMYCIN PER PHARMACY IV SCH (12:44)
[2021-12-24] MEDS ORDERED: HYDROmorphone 0.5 MG/0.5 ML SYRINGE IV PRN (12:44)
[2021-12-24] MEDS ORDERED: ACETAMINOPHEN 325 MG TABLET PO PRN (12:44)
[2021-12-24] MEDS ORDERED: IPRATROPIUM/ALBUTEROL 3 ML AMPUL.NEB NEB PRN (12:44)
[2021-12-24] MEDS: PIPERACILLIN SODIUM/TAZOBACTAM 3.375 GM in DEXTROSE 5% IN WATER 50 ML IV SCH ×3 (13:50→23:55)
[2021-12-24] MEDS: oxyCODONE HCL 5 MG TABLET PO PRN (13:52)
[2021-12-24] MEDS: 0.9 % SODIUM CHLORIDE 10 ML SYRINGE IV SCH ×2 (14:58→20:08)
[2021-12-24] MEDS: FUROSEMIDE 20 MG/2 ML VIAL IV SCH (15:45)
[2021-12-24] MEDS: DOCUSATE SODIUM 100 MG CAPSULE PO SCH (20:08)
[2021-12-24] MEDS: VANCOMYCIN 1,500 MG in 0.9 % SODIUM CHLORIDE 500 ML IV SCH (20:08)
[2021-12-24] MEDS: HEPARIN 5,000 UNIT/ML VIAL SQ SCH (20:08)
[2021-12-24] MEDS: SENNOSIDES 1 TABLET PO SCH (20:08)
[2021-12-24] MEDS ORDERED: ZOLPIDEM 5 MG TABLET PO PRN (21:00)
[2021-12-25] MEDS: oxyCODONE HCL 5 MG TABLET PO PRN (05:21)
[2021-12-25] MEDS: 0.9 % SODIUM CHLORIDE 10 ML SYRINGE IV SCH ×3 (05:22→20:34)
[2021-12-25] MEDS: PIPERACILLIN SODIUM/TAZOBACTAM 3.375 GM in DEXTROSE 5% IN WATER 50 ML IV SCH ×3 (05:22→16:37)
[2021-12-25 06:41] LABS: Basophils # (Auto) 0.01 K/mcL (0.00-0.30); Basophils % (Auto) 0.1 % (0.0-2.0); Eosinophils % (Auto) 1.2 % (0.0-7.0); Hematocrit 38.8 % (40.1-51.0); Lymphocytes # (Auto) 0.98 K/mcL (1.50-4.80); Lymphocytes % (Auto) 11.5 % (15.5-49.0); Mean Cell Volume 89.8 fL (80.0-100.0); Mean Corpuscular HGB Conc 30.9 g/dL (31.0-36.0); Mean Platelet Volume 9.4 fL (8.8-12.5); Monocytes # (Auto) 0.57 K/mcL (0.10-0.90); Monocytes % (Auto) 6.7 % (1.0-12.0); Neutrophils % (Auto) 79.9 % (38.0-78.0); Platelet Count 248 K/mcL (140-440); RBC 4.32 M/mcL (4.63-6.08); Red Cell Distribution Width 17.1 % (11.5-14.5); WBC 8.5 K/mcL (4.5-11.0)
[2021-12-25 06:57] LABS: ALT/SGPT 52 U/L (<40); AST/SGOT 77 U/L (<40); Albumin 3.1 gm/dL (3.2-5.2); Alkaline Phosphatase 118 U/L (39-117); Bilirubin,Total 2.1 mg/dL (0.1-1.0); Blood Urea Nitrogen 28 mg/dL (6-20); Calcium 8.8 mg/dL (8.6-10.4); Carbon Dioxide 26 mmol/L (22-30); Chloride 92 mmol/L (96-108); Globulin 3.2 gm/dL (2.2-3.7); Glomerular Filtration Rate 62; Glucose 102 mg/dL (70-105)
[2021-12-25 06:58] LABS: Phosphorous 3.7 mg/dL (2.5-4.5)
[2021-12-25] MEDS: HEPARIN 5,000 UNIT/ML VIAL SQ SCH ×2 (08:22→20:35)
[2021-12-25] MEDS: DOCUSATE SODIUM 100 MG CAPSULE PO SCH ×2 (08:22→20:34)
[2021-12-25] MEDS: FUROSEMIDE 20 MG/2 ML VIAL IV SCH ×2 (08:22→15:30)
[2021-12-25] MEDS: MUPIROCIN OINT 2% 22GM NARES SCH ×2 (08:23→20:33)
[2021-12-25] MEDS: VANCOMYCIN 1,500 MG in 0.9 % SODIUM CHLORIDE 500 ML IV SCH ×2 (08:59→21:33)
--- NOTE | 2021-12-25 10:36 | Internal Med Progress Note ---
SUBJECTIVE Subjective Patient information: Note initiated : 12/25/21 at 10:32 am Service Date, if different from initiated Date: [] Patient: Wilner Romero 41 y/o M admitted on 12/24/21 for cellulitis not going away. Chief Complaint: [] Interval history: Mr. Romero is a 41 year old M history of meth use, CHF, presenting with abdominal and scrotal swelling and pain. He presented to our ED 2 weeks ago for similar complaints, was being diagnosed with bilateral epididymis, and was being discharged home with oral doxycycline. He stated that he finished the antibiotics but the swelling and pain persist and get worse so he returned to [facility] ED today for reevaluation and treatments. He is committing of lower abdominal and scrotal swelling and pain, the nature of the pain is " distention", mild to moderate. He denies any fever, chills, or diaphoresis. He is also commenting of bilateral leg swellings. He is adamant about his methamphetamine use and he did smoke it earlier this morning. Denies any shortness of breath. Denies any chest pain or palpitations. Vital signs significant for tachycardia heart rate in the 1 teens beats per minute, tachypnea rate of breathing up to the mid 30s breaths per minute. Labs significant for leukocytosis with WBC 14.3. Lactic acid 3.0. Potasssium 5.4. PCO creatinine 1.6. Procalcitonin 0.46. UA suggesting the presence of urinary tract infections. Urine drug screen positive for methamphetamine. CT abdomen pelvis showing severe and extensive subcutaneous edema with marked scrotal edema and enlargement. No soft tissue gas or focal abscess. No evidence for necrotizing fasciitis. Scrotal ultrasound showing normal testicles. Epididymis is suboptimally evaluated bilaterally but there is no definite abnormalities. Severe scrotal edema or cellulitis and marked scrotal thickening. 12/25: Afebrile overnight. Blood and urine culture no growth today. Patient is coming of mild to moderate lower abdominal pain as well as scrotal swelling and pain. Denies any fever chills or diaphoresis. He just being tired. Continue diuretics with IV Lasix. Continue broad-spectrum antibiotics with vancomycin and Zosyn. 2000 cc/day fluid restrictions. Constitutional Vitals: Vital Signs Temp Pulse Resp BP Pulse Ox O2 Del Method 37.0 C 110 H 18 118/94 91 12/25/21 07:18 12/25/21 07:18 12/25/21 07:18 12/25/21 07:18 12/25/21 07:18 12/25/21 07:18 Period Temp Pulse Resp BP Sys/Triplett Pulse Ox O2 Del Method O2 Flow Rate Last 24 Hr 36.4 C-37.0 C 109-118 18-24 114-158/77-106 91-96 Room Air-Room Air Intake and Output 12/24/21 12/25/21 12/25/21 21:59 05:59 13:59 Intake Total 2090 580 480 Balance 2090 580 480 Weight 125.277 kg 125.277 kg Patient Weight 12/26/21 05:59 Weight 125.277 kg Intake & Output: Intake & Output 12/24/21 12/25/21 12/25/21 21:59 05:59 13:59 Intake Total 2090 580 480 Balance 2090 580 480 Weight 125.277 kg 125.277 kg Intake: IV 600 100 Zosyn 3.375 gm In Dextrose 5% 100 100 in Water 50 ml @ 100 mls/hr IV Q6H [facility] Rx#:[id number] Vancomycin 1,500 mg In Sodium 500 Chloride 0.9% 500 ml @ 333.3 mls/hr IV Q12H [facility]EF[facility] Rx#: [id number] Oral 1490 480 480 Other: Meal Sherbert Breakfast Percent of Meal Consumed 100% 100% Feeding Ability Independent Independent # Voids 1 1 1 Head Head exam: Present atraumatic and normal inspection Eye Eye exam: Present normal appearance ENT ENT exam: Present mucous membranes moist, normal exam and normal external ear exam Neck Neck exam: Present normal inspection Respiratory Respiratory exam: Present normal respiratory exam Cardiovascular Cardiovascular exam: Present normal rate and rhythm GI/Abdominal GI/Abdominal exam: Present normal bowel sounds Additional comments: Bilateral lower abdominal wall erythema, swelling, and pain Additional comments: Scrotal erythema, swelling, and pain Extremities Exam Extremities exam: Present pedal edema Back Exam Back exam: Present normal inspection Neurological Exam Neurological exam: Present alert and oriented X3 Skin Skin exam: Present intact and warm OBJ DATA Labs CBC & Chem 7: 12/25/21 05:46 12/25/21 05:46 Labs: Abnormal Lab Results 12/25/21 12/25/21 12/24/21 05:46 05:46 15:30 WBC RBC 4.32 L Hgb 12.0 L Hct 38.8 L MCHC 30.9 L RDW 17.1 H Immature Gran % (Auto) 0.6 H Neut % (Auto) 79.9 H Lymph % (Auto) 11.5 L Lymph # (Auto) 0.98 L Immature Gran # Absolute Neutrophils POC VBG pH POC VBG pCO2 at Temp POC VBG pO2 POC VBG Base Excess VBG Lactic Acid 3.0 H POC Sodium Sodium 131 L POC Potassium Chloride 92 L POC BUN BUN 28 H Creatinine 1.4 H POC Creatinine POC WB Ioniz Calcium Total Bilirubin 2.1 H AST 77 H ALT 52 H Alkaline Phosphatase 118 H Albumin 3.1 L Procalcitonin Urine Appearance Ur Leukocyte Esterase Urine WBC Ur Squamous Epith Cells Ur Amphetamines Screen 12/24/21 12/24/21 12/24/21 10:50 08:13 07:30 WBC RBC Hgb Hct MCHC RDW Immature Gran % (Auto) Neut % (Auto) Lymph % (Auto) Lymph # (Auto) Immature Gran # Absolute Neutrophils POC VBG pH 7.48 H POC VBG pCO2 at Temp 36.9 L POC VBG pO2 21 L POC VBG Base Excess 4.0 H* VBG Lactic Acid 2.6 H 3.7 H 3.0 H POC Sodium Sodium POC Potassium Chloride POC BUN BUN Creatinine POC Creatinine POC WB Ioniz Calcium Total Bilirubin AST ALT Alkaline Phosphatase Albumin Procalcitonin Urine Appearance Ur Leukocyte Esterase Urine WBC Ur Squamous Epith Cells Ur Amphetamines Screen 12/24/21 12/24/21 12/24/21 07:25 07:25 04:41 WBC RBC Hgb Hct MCHC RDW Immature Gran % (Auto) Neut % (Auto) Lymph % (Auto) Lymph # (Auto) Immature Gran # Absolute Neutrophils POC VBG pH 7.47 H POC VBG pCO2 at Temp 36.4 L POC VBG pO2 23 L POC VBG Base Excess 3.0 H VBG Lactic Acid 3.4 H POC Sodium Sodium POC Potassium Chloride POC BUN BUN Creatinine POC Creatinine POC WB Ioniz Calcium Total Bilirubin AST ALT Alkaline Phosphatase Albumin Procalcitonin Urine Appearance Hazy A Ur Leukocyte Esterase 500 A Urine WBC 7 H Ur Squamous Epith Cells 5 H Ur Amphetamines Screen Suspect positive A 12/24/21 12/24/21 12/24/21 04:40 04:40 04:40 WBC 14.3 H RBC Hgb Hct MCHC RDW 16.8 H Immature Gran % (Auto) 0.6 H Neut % (Auto) 81.1 H Lymph % (Auto) 12.2 L Lymph # (Auto) Immature Gran # 0.09 H Absolute Neutrophils 11.58 H POC VBG pH POC VBG pCO2 at Temp POC VBG pO2 POC VBG Base Excess VBG Lactic Acid POC Sodium 131 L Sodium POC Potassium 5.4 H Chloride POC BUN 26 H BUN Creatinine POC Creatinine 1.6 H POC WB Ioniz Calcium 1.01 L Total Bilirubin AST ALT Alkaline Phosphatase Albumin Procalcitonin 0.46 H Urine Appearance Ur Leukocyte Esterase Urine WBC Ur Squamous Epith Cells Ur Amphetamines Screen Meds: Medications Acetaminophen (Acetaminophen 325 Mg Tablet) 650 mg PO Q6HP PRN; Protocol PRN Reason: Per Pain Protocol/Fever > 101 Albuterol/Ipratropium (Ipratropium/Albuterol 3 Ml Ampul.Neb) 3 ml NEB Q4HRT PRN PRN Reason: Wheezing Docusate Sodium (Docusate Sodium 100 Mg Capsule) 100 mg PO BID [facility] Last Admin: 12/25/21 08:22 Dose: 100 mg Furosemide (Furosemide 20 Mg/2 Ml Vial) 20 mg IV BIDD [facility] Last Admin: 12/25/21 08:22 Dose: 20 mg Heparin Sodium (Porcine) (Heparin 5,000 Unit/Ml Vial) 5,000 unit SQ Q12 [facility] Last Admin: 12/25/21 08:22 Dose: 5,000 unit Hydromorphone HCl (Hydromorphone 0.5 Mg/0.5 Ml Syringe) 0.5 mg IV Q4HP PRN; Protocol PRN Reason: Per Pain Protocol Piperacillin Sod/Tazobactam (Sod 3.375 gm/ Dextrose) 50 mls @ 100 mls/hr IV Q6H [facility]; Protocol Last Infusion: 12/25/21 05:52 Dose: Infused Vancomycin HCl 1,500 mg/ (Sodium Chloride) 500 mls @ 333.3 mls/hr IV Q12H [facility] Last Admin: 12/25/21 08:59 Dose: 333.3 mls/hr Ketorolac Tromethamine (Ketorolac 30 Mg/Ml Vial) 30 mg IV Q6HP PRN; Protocol PRN Reason: Per Pain Protocol Stop: 12/26/21 10:55 Last Admin: 12/24/21 13:51 Dose: 30 mg Mupirocin (Mupirocin Oint 2% 22gm) 1 dose NARES BID [facility] Last Admin: 12/25/21 08:23 Dose: 1 dose Ondansetron HCl (Ondansetron 4 Mg/2 Ml Vial) 4 mg IV Q6HP PRN PRN Reason: Nausea And Vomiting Oxycodone HCl (Oxycodone Hcl 5 Mg Tablet) 5 mg PO Q4HP PRN; Protocol PRN Reason: Per Pain Protocol Last Admin: 12/25/21 05:21 Dose: 5 mg Senna (Sennosides 1 Tablet) 2 tab PO HS [facility] Last Admin: 12/24/21 20:08 Dose: 2 tab Sodium Chloride (0.9 % Sodium Chloride 10 Ml Syringe) 10 ml IV Q8 [facility] Last Admin: 12/25/21 05:22 Dose: 10 ml Vancomycin HCl (Vancomycin Per Pharmacy) 1 order IV UD [facility]; Protocol Zolpidem Tartrate (Zolpidem 5 Mg Tablet) 5 mg PO HSP PRN PRN Reason: Insomnia A/P Assessment and plan (1) Clinical sepsis: Status: Acute (2) CHF (congestive heart failure): Status: Acute (3) Methamphetamine abuse: Status: Acute (4) Cellulitis of scrotum: Status: Acute (5) UTI (urinary tract infection): Status: Acute (6) Stage 1 acute kidney injury: Status: Acute (7) Hyperkalemia: Status: Acute (8) Obesity (BMI 35.0-39.9 without comorbidity): Status: Acute Narrative A/P Narrative: Assessment and Plans: 1. Clinical sepsis secondary to scrotal cellulitis and UTI: Inpatient med surg Serial lactic acid Procalcitonin Blood culture, no growth to date Urine culture, no growth to date MRSA screening cbc w/ auto diff in the morning to trend WBC Tylenol Oxycodone Dilaudid Vancomycin Zosyn 2. h/o CHF: Lasix 20mg IV BID for the abdominal, scrotal, and bilateral legs swelling 3. Stage 1 acute kidney injury: Avoid nephrotoxic agents Saline lock with Lasix CMP in the morning to trend kidney functions 4. Methamphetamine abuse: Continue to monitor for any associated withdrawal symptoms 5. 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 Hyperkalemia: RESOLVED Lasix 20mg IV BID d/c potassium chloride oral supplement from home regimen Repeat CMP in the morning to trend serum potassium level GI ppx: not currently indicated DVT ppx: Heparin Code status: Full Prognosis: guarded Disposition: inpatient med surg Time Spent With Patient Time: Total time spent is greater than 50% in coordination of care (as documented) at patient's floor/unit and/or counseling patient:
--- NOTE | 2021-12-25 12:08 | Internal Med Progress Note ---
SUBJECTIVE Subjective Patient information: Note initiated : 12/25/21 at 12:04 pm Service Date, if different from initiated Date: [] Patient: Wilner Romero a 41 y/o M admitted on 12/24/21 for cellulitis not going away. Chief Complaint: [] Interval history: Mr. Romero is a 41 year old M history of meth use, CHF, presenting with abdominal and scrotal swelling and pain. He presented to our ED 2 weeks ago for similar complaints, was being diagnosed with bilateral epididymis, and was being discharged home with oral doxycycline. He stated that he finished the antibiotics but the swelling and pain persist and get worse so he returned to [facility] ED today for reevaluation and treatments. He is committing of lower abdominal and scrotal swelling and pain, the nature of the pain is " distention", mild to moderate. He denies any fever, chills, or diaphoresis. He is also commenting of bilateral leg swellings. He is adamant about his methamphetamine use and he did smoke it earlier this morning. Denies any shortness of breath. Denies any chest pain or palpitations. Vital signs significant for tachycardia heart rate in the 1 teens beats per minute, tachypnea rate of breathing up to the mid 30s breaths per minute. Labs significant for leukocytosis with WBC 14.3. Lactic acid 3.0. Potasssium 5.4. PCO creatinine 1.6. Procalcitonin 0.46. UA suggesting the presence of urinary tract infections. Urine drug screen positive for methamphetamine. CT abdomen pelvis showing severe and extensive subcutaneous edema with marked scrotal edema and enlargement. No soft tissue gas or focal abscess. No evidence for necrotizing fasciitis. Scrotal ultrasound showing normal testicles. Epididymis is suboptimally evaluated bilaterally but there is no definite abnormalities. Severe scrotal edema or cellulitis and marked scrotal thickening. 12/25: Afebrile overnight. Blood and urine culture no growth today. Patient is coming of mild to moderate lower abdominal pain as well as scrotal swelling and pain. Denies any fever chills or diaphoresis. He just being tired. Continue diuretics with IV Lasix. Continue broad-spectrum antibiotics with vancomycin and Zosyn. 2000 cc/day fluid restrictions. 12/26 Afebrile overnight, leukocytosis resolved. Renal function improved, replaced potassium. Increased Lasix from 20 mg to 40 mg IV BID, continue Vancomycin IV, started Ceftriaxone and discontinued Zosyn. MRSA nasal PCR positive. LFT's improving. Discontinued Toradol and Lisinopril for MAKENNA. Physical exam Head: Atraumatic, normal inspection. Eyes: normal appearance, no scleral icterus. Neck: full ROM Respiratory: no respiratory distress. Cardiovascular: normal rate and rhythm, S1, S2. GI/Abdominal: distended, soft, no guarding, mild tenderness over cellulitis on lower abdomen. : scrotal and penis edema Extremities: Bilateral lower extremity pitting edema, full range of motion, nontender. Neurological: CN II-XII intact, intact motor, intact sensation. Psychiatric: normal mood. Skin: warmth, redness, tenderness over lower abdomen, scrotum, groin, and bilateral lower extremities. Constitutional Vitals: Vital Signs Temp Pulse Resp BP Pulse Ox O2 Del Method 98.8 F 116 H 16 128/95 90 12/25/21 11:27 12/25/21 11:27 12/25/21 11:27 12/25/21 11:27 12/25/21 11:27 12/25/21 11:27 Period Temp Pulse Resp BP Sys/Triplett Pulse Ox O2 Del Method O2 Flow Rate Last 24 Hr 97.5 F-98.8 F 109-118 16-24 114-158/77-106 90-96 Room Air-Room Air Intake and Output 12/24/21 12/25/21 12/25/21 21:59 05:59 13:59 Intake Total 2090 580 980 Balance 2090 580 980 Weight 125.277 kg 125.277 kg Patient Weight 12/26/21 05:59 Weight 125.277 kg Intake & Output: Intake & Output 12/24/21 12/25/21 12/25/21 21:59 05:59 13:59 Intake Total 2090 580 980 Balance 2090 580 980 Weight 125.277 kg 125.277 kg Intake: IV 600 100 500 Zosyn 3.375 gm In Dextrose 5% 100 100 in Water 50 ml @ 100 mls/hr IV Q6H [facility] Rx#:[id number] Vancomycin 1,500 mg In Sodium 500 500 Chloride 0.9% 500 ml @ 333.3 mls/hr IV Q12H [facility] Rx#: [id number] Oral 1490 480 480 Other: Meal Sherbert Breakfast Percent of Meal Consumed 100% 100% Feeding Ability Independent Independent # Voids 1 1 1 OBJ DATA Labs CBC & Chem 7: 12/26/21 07:53 12/26/21 07:53 Labs: Abnormal Lab Results 12/25/21 12/25/21 12/24/21 05:46 05:46 15:30 WBC RBC 4.32 L Hgb 12.0 L Hct 38.8 L MCHC 30.9 L RDW 17.1 H Immature Gran % (Auto) 0.6 H Neut % (Auto) 79.9 H Lymph % (Auto) 11.5 L Lymph # (Auto) 0.98 L Immature Gran # Absolute Neutrophils POC VBG pH POC VBG pCO2 at Temp POC VBG pO2 POC VBG Base Excess VBG Lactic Acid 3.0 H POC Sodium Sodium 131 L POC Potassium Chloride 92 L POC BUN BUN 28 H Creatinine 1.4 H POC Creatinine POC WB Ioniz Calcium Total Bilirubin 2.1 H AST 77 H ALT 52 H Alkaline Phosphatase 118 H Albumin 3.1 L Procalcitonin Urine Appearance Ur Leukocyte Esterase Urine WBC Ur Squamous Epith Cells Ur Amphetamines Screen 12/24/21 12/24/21 12/24/21 10:50 08:13 07:30 WBC RBC Hgb Hct MCHC RDW Immature Gran % (Auto) Neut % (Auto) Lymph % (Auto) Lymph # (Auto) Immature Gran # Absolute Neutrophils POC VBG pH 7.48 H POC VBG pCO2 at Temp 36.9 L POC VBG pO2 21 L POC VBG Base Excess 4.0 H* VBG Lactic Acid 2.6 H 3.7 H 3.0 H POC Sodium Sodium POC Potassium Chloride POC BUN BUN Creatinine POC Creatinine POC WB Ioniz Calcium Total Bilirubin AST ALT Alkaline Phosphatase Albumin Procalcitonin Urine Appearance Ur Leukocyte Esterase Urine WBC Ur Squamous Epith Cells Ur Amphetamines Screen 12/24/21 12/24/21 12/24/21 07:25 07:25 04:41 WBC RBC Hgb Hct MCHC RDW Immature Gran % (Auto) Neut % (Auto) Lymph % (Auto) Lymph # (Auto) Immature Gran # Absolute Neutrophils POC VBG pH 7.47 H POC VBG pCO2 at Temp 36.4 L POC VBG pO2 23 L POC VBG Base Excess 3.0 H VBG Lactic Acid 3.4 H POC Sodium Sodium POC Potassium Chloride POC BUN BUN Creatinine POC Creatinine POC WB Ioniz Calcium Total Bilirubin AST ALT Alkaline Phosphatase Albumin Procalcitonin Urine Appearance Hazy A Ur Leukocyte Esterase 500 A Urine WBC 7 H Ur Squamous Epith Cells 5 H Ur Amphetamines Screen Suspect positive A 12/24/21 12/24/21 12/24/21 04:40 04:40 04:40 WBC 14.3 H RBC Hgb Hct MCHC RDW 16.8 H Immature Gran % (Auto) 0.6 H Neut % (Auto) 81.1 H Lymph % (Auto) 12.2 L Lymph # (Auto) Immature Gran # 0.09 H Absolute Neutrophils 11.58 H POC VBG pH POC VBG pCO2 at Temp POC VBG pO2 POC VBG Base Excess VBG Lactic Acid POC Sodium 131 L Sodium POC Potassium 5.4 H Chloride POC BUN 26 H BUN Creatinine POC Creatinine 1.6 H POC WB Ioniz Calcium 1.01 L Total Bilirubin AST ALT Alkaline Phosphatase Albumin Procalcitonin 0.46 H Urine Appearance Ur Leukocyte Esterase Urine WBC Ur Squamous Epith Cells Ur Amphetamines Screen Meds: Medications Acetaminophen (Acetaminophen 325 Mg Tablet) 650 mg PO Q6HP PRN; Protocol PRN Reason: Per Pain Protocol/Fever > 101 Albuterol/Ipratropium (Ipratropium/Albuterol 3 Ml Ampul.Neb) 3 ml NEB Q4HRT PRN PRN Reason: Wheezing Docusate Sodium (Docusate Sodium 100 Mg Capsule) 100 mg PO BID [facility] Last Admin: 12/25/21 08:22 Dose: 100 mg Furosemide (Furosemide 20 Mg/2 Ml Vial) 20 mg IV BIDD [facility] Last Admin: 12/25/21 08:22 Dose: 20 mg Heparin Sodium (Porcine) (Heparin 5,000 Unit/Ml Vial) 5,000 unit SQ Q12 [facility] Last Admin: 12/25/21 08:22 Dose: 5,000 unit Hydromorphone HCl (Hydromorphone 0.5 Mg/0.5 Ml Syringe) 0.5 mg IV Q4HP PRN; Protocol PRN Reason: Per Pain Protocol Piperacillin Sod/Tazobactam (Sod 3.375 gm/ Dextrose) 50 mls @ 100 mls/hr IV Q6H [facility]; Protocol Last Admin: 12/25/21 12:03 Dose: 100 mls/hr Vancomycin HCl 1,500 mg/ (Sodium Chloride) 500 mls @ 333.3 mls/hr IV Q12H [facility] Last Infusion: 12/25/21 10:34 Dose: Infused Ketorolac Tromethamine (Ketorolac 30 Mg/Ml Vial) 30 mg IV Q6HP PRN; Protocol PRN Reason: Per Pain Protocol Stop: 12/26/21 10:55 Last Admin: 12/24/21 13:51 Dose: 30 mg Lisinopril (Lisinopril 2.5 Mg Tablet) 2.5 mg PO BID [facility] Metoprolol Succinate (Metoprolol Succinate 50 Mg Tab.Xl.24h) 50 mg PO BID [facility] Mupirocin (Mupirocin Oint 2% 22gm) 1 dose NARES BID [facility] Last Admin: 12/25/21 08:23 Dose: 1 dose Ondansetron HCl (Ondansetron 4 Mg/2 Ml Vial) 4 mg IV Q6HP PRN PRN Reason: Nausea And Vomiting Oxycodone HCl (Oxycodone Hcl 5 Mg Tablet) 5 mg PO Q4HP PRN; Protocol PRN Reason: Per Pain Protocol Last Admin: 12/25/21 05:21 Dose: 5 mg Senna (Sennosides 1 Tablet) 2 tab PO HS [facility] Last Admin: 12/24/21 20:08 Dose: 2 tab Sodium Chloride (0.9 % Sodium Chloride 10 Ml Syringe) 10 ml IV Q8 [facility] Last Admin: 12/25/21 12:03 Dose: 10 ml Vancomycin HCl (Vancomycin Per Pharmacy) 1 order IV UD [facility]; Protocol Zolpidem Tartrate (Zolpidem 5 Mg Tablet) 5 mg PO HSP PRN PRN Reason: Insomnia A/P Narrative A/P Narrative: Assessment: 41-year-old male with history of methamphetamine use, congestive heart failure, obesity admitted for sepsis secondary to scrotal cellulitis complicated by acute kidney injury and acute on chronic congestive heart failure. #Resolving sepsis secondary to scrotal cellulitis #Acute kidney injury secondary to sepsis #Acute on chronic heart failure, unspecified #Elevated LFTs #Methamphetamine use disorder #Obesity BMI 40 Plan -Vancomycin and Ceftriaxone for now. -Follow-up blood cultures. -Lasix 40 mg IV twice daily for CHF, monitor volume status. -Monitor renal function, I&O, daily weights. -Replace electrolytes as needed. -Screen for chronic hepatitis B and C. -ECHO -Analgesics as needed. -Regular diet. -DVT prophylaxis: Heparin SQ -CODE STATUS: Full -Disposition: Home when stable Time Spent With Patient Time: Total time spent is greater than 50% in coordination of care (as documented) at patient's floor/unit and/or counseling patient:
[2021-12-25] MEDS: METOPROLOL SUCCINATE 50 MG TAB.XL.24H PO SCH (20:34)
[2021-12-25] MEDS: SENNOSIDES 1 TABLET PO SCH (20:37)
[2021-12-25] MEDS ORDERED: LISINOPRIL 2.5 MG TABLET PO SCH (21:00)
[2021-12-26] MEDS: PIPERACILLIN SODIUM/TAZOBACTAM 3.375 GM in DEXTROSE 5% IN WATER 50 ML IV SCH ×3 (00:20→11:46)
[2021-12-26] MEDS: 0.9 % SODIUM CHLORIDE 10 ML SYRINGE IV SCH ×3 (05:33→21:21)
[2021-12-26] MEDS: DOCUSATE SODIUM 100 MG CAPSULE PO SCH ×2 (07:58→20:24)
[2021-12-26] MEDS: METOPROLOL SUCCINATE 50 MG TAB.XL.24H PO SCH ×2 (07:59→20:24)
[2021-12-26] MEDS: FUROSEMIDE 20 MG/2 ML VIAL IV SCH ×2 (07:59→14:56)
[2021-12-26] MEDS: MUPIROCIN OINT 2% 22GM NARES SCH ×2 (08:00→20:27)
[2021-12-26] MEDS: HEPARIN 5,000 UNIT/ML VIAL SQ SCH ×2 (08:00→20:23)
[2021-12-26 08:30] LABS: Basophils # (Auto) 0 K/mcL (0.00-0.30); Basophils % (Auto) 0 % (0.0-2.0); Eosinophils # (Auto) 0.15 K/mcL (0.00-0.70); Eosinophils % (Auto) 2.2 % (0.0-7.0); Hematocrit 37.4 % (40.1-51.0); Hemoglobin 11.7 g/dL (13.7-17.5); Lymphocytes % (Auto) 16.4 % (15.5-49.0); Mean Corpuscular HGB Conc 31.3 g/dL (31.0-36.0); Mean Platelet Volume 9.5 fL (8.8-12.5); Neutrophils % (Auto) 72.1 % (38.0-78.0); Platelet Count 245 K/mcL (140-440); Red Cell Distribution Width 16.8 % (11.5-14.5); WBC 6.7 K/mcL (4.5-11.0)
[2021-12-26 08:56] LABS: ALT/SGPT 43 U/L (<40); AST/SGOT 53 U/L (<40); Albumin 2.9 gm/dL (3.2-5.2); Alkaline Phosphatase 112 U/L (39-117); Bilirubin,Direct 0.8 mg/dL (<0.3); Bilirubin,Total 1.5 mg/dL (0.1-1.0); Blood Urea Nitrogen 22 mg/dL (6-20); Calcium 8.3 mg/dL (8.6-10.4); Carbon Dioxide 29 mmol/L (22-30); Chloride 96 mmol/L (96-108); Globulin 2.8 gm/dL (2.2-3.7); Glomerular Filtration Rate 75; Glucose 101 mg/dL (70-105); Lactate Dehydrogenase 366 U/L (135-225); Phosphorous 2.7 mg/dL (2.5-4.5); Triglycerides 79 mg/dL (<150); Uric Acid 6.7 mg/dL (2.5-8.0)
[2021-12-26 09:12] LABS: Hepatitis C Virus Antibody Non-Reactive (Non-Reactive)
[2021-12-26] MEDS: VANCOMYCIN 1,500 MG in 0.9 % SODIUM CHLORIDE 500 ML IV SCH ×2 (09:56→20:24)
[2021-12-26] MEDS: POTASSIUM CHLORIDE 20 MEQ TABLET PO SCH ×2 (14:17→20:24)
[2021-12-26] MEDS: cefTRIAXone 2 GM in DEXTROSE 5% IN WATER 50 ML IV SCH (14:18)
[2021-12-26] MEDS: SENNOSIDES 1 TABLET PO SCH (20:24)
[2021-12-26] MEDS: oxyCODONE HCL 5 MG TABLET PO PRN (20:26)
[2021-12-27] MEDS: 0.9 % SODIUM CHLORIDE 10 ML SYRINGE IV SCH ×3 (05:45→21:13)
[2021-12-27 06:54] LABS: Basophils # (Auto) 0 K/mcL (0.00-0.30); Basophils % (Auto) 0 % (0.0-2.0); Eosinophils # (Auto) 0.24 K/mcL (0.00-0.70); Eosinophils % (Auto) 3.5 % (0.0-7.0); Hematocrit 38.5 % (40.1-51.0); Lymphocytes # (Auto) 1.17 K/mcL (1.50-4.80); Lymphocytes % (Auto) 17.1 % (15.5-49.0); Mean Cell Volume 89.1 fL (80.0-100.0); Mean Corpuscular HGB Conc 31.2 g/dL (31.0-36.0); Mean Platelet Volume 9.3 fL (8.8-12.5); Monocytes % (Auto) 7.3 % (1.0-12.0); Neutrophils % (Auto) 71.8 % (38.0-78.0); Platelet Count 266 K/mcL (140-440); RBC 4.32 M/mcL (4.63-6.08); Red Cell Distribution Width 16.8 % (11.5-14.5); WBC 6.8 K/mcL (4.5-11.0)
[2021-12-27 07:19] LABS: ALT/SGPT 42 U/L (<40); AST/SGOT 48 U/L (<40); Albumin 2.9 gm/dL (3.2-5.2); Alkaline Phosphatase 136 U/L (39-117); Bilirubin,Direct 0.5 mg/dL (<0.3); Bilirubin,Total 0.9 mg/dL (0.1-1.0); Blood Urea Nitrogen 22 mg/dL (6-20); Calcium 8.3 mg/dL (8.6-10.4); Carbon Dioxide 24 mmol/L (22-30); Chloride 99 mmol/L (96-108); Globulin 2.9 gm/dL (2.2-3.7); Glomerular Filtration Rate 93; Glucose 138 mg/dL (70-105); Lactate Dehydrogenase 365 U/L (135-225); Phosphorous 3.1 mg/dL (2.5-4.5); Triglycerides 99 mg/dL (<150); Uric Acid 6.6 mg/dL (2.5-8.0)
[2021-12-27] MEDS: HEPARIN 5,000 UNIT/ML VIAL SQ SCH ×2 (08:05→21:13)
[2021-12-27] MEDS: FUROSEMIDE 20 MG/2 ML VIAL IV SCH (08:05)
[2021-12-27] MEDS: MUPIROCIN OINT 2% 22GM NARES SCH ×2 (08:05→21:13)
[2021-12-27] MEDS: METOPROLOL SUCCINATE 50 MG TAB.XL.24H PO SCH ×2 (08:05→21:13)
[2021-12-27] MEDS: cefTRIAXone 2 GM in DEXTROSE 5% IN WATER 50 ML IV SCH (08:05)
[2021-12-27] MEDS: DOCUSATE SODIUM 100 MG CAPSULE PO SCH ×2 (08:05→21:13)
[2021-12-27] MEDS: VANCOMYCIN 1,500 MG in 0.9 % SODIUM CHLORIDE 500 ML IV SCH (11:40)
--- NOTE | 2021-12-27 11:45 | Internal Med Progress Note ---
SUBJECTIVE Subjective Patient information: Note initiated : 12/27/21 at 11:41 am Service Date, if different from initiated Date: [] Patient: Wilner Romero 41 y/o M admitted on 12/24/21 for cellulitis not going away. Chief Complaint: [] Interval history: Mr. Romero is a 41 year old M history of meth use, CHF, presenting with abdominal and scrotal swelling and pain. He presented to our ED 2 weeks ago for similar complaints, was being diagnosed with bilateral epididymis, and was being discharged home with oral doxycycline. He stated that he finished the antibiotics but the swelling and pain persist and get worse so he returned to [facility] ED today for reevaluation and treatments. He is committing of lower abdominal and scrotal swelling and pain, the nature of the pain is " distention", mild to moderate. He denies any fever, chills, or diaphoresis. He is also commenting of bilateral leg swellings. He is adamant about his methamphetamine use and he did smoke it earlier this morning. Denies any shortness of breath. Denies any chest pain or palpitations. Vital signs significant for tachycardia heart rate in the 1 teens beats per minute, tachypnea rate of breathing up to the mid 30s breaths per minute. Labs significant for leukocytosis with WBC 14.3. Lactic acid 3.0. Potasssium 5.4. PCO creatinine 1.6. Procalcitonin 0.46. UA suggesting the presence of urinary tract infections. Urine drug screen positive for methamphetamine. CT abdomen pelvis showing severe and extensive subcutaneous edema with marked scrotal edema and enlargement. No soft tissue gas or focal abscess. No evidence for necrotizing fasciitis. Scrotal ultrasound showing normal testicles. Epididymis is suboptimally evaluated bilaterally but there is no definite abnormalities. Severe scrotal edema or cellulitis and marked scrotal thickening. 12/25: Afebrile overnight. Blood and urine culture no growth today. Patient is coming of mild to moderate lower abdominal pain as well as scrotal swelling and pain. Denies any fever chills or diaphoresis. He just being tired. Continue diuretics with IV Lasix. Continue broad-spectrum antibiotics with vancomycin and Zosyn. 2000 cc/day fluid restrictions. 12/26 Afebrile overnight, leukocytosis resolved. Renal function improved, replaced potassium. Increased Lasix from 20 mg to 40 mg IV BID, continue Vancomycin IV, started Ceftriaxone and discontinued Zosyn. MRSA nasal PCR positive. LFT's improving. Discontinued Toradol and Lisinopril for MAKENNA. 12/27 Afebrile overnight, renal function stable. The patient is diuresing but still markedly edematous. Transition to Lasix infusion, transfer to PCU for closer monitoring, cardiac technologist while diuresing with IV Lasix. Check urine protein creatinine ratio. Transthoracic echocardiogram result pending. Continues on vancomycin and ceftriaxone. Preliminary blood culture results showing no growth to date. LFTs improving. Hepatitis C antibody nonreactive, hepatitis B surface antigen negative. Physical exam Head: Atraumatic, normal inspection. Eyes: normal appearance, no scleral icterus. Neck: full ROM Respiratory: no respiratory distress. Cardiovascular: normal rate and rhythm, S1, S2. GI/Abdominal: distended, soft, no guarding, mild tenderness over cellulitis on lower abdomen. : scrotal and penis edema Extremities: Bilateral lower extremity pitting edema, full range of motion, nontender. Neurological: CN II-XII intact, intact motor, intact sensation. Psychiatric: normal mood. Skin: warmth, redness, tenderness over lower abdomen, scrotum, groin, and bilateral lower extremities. Constitutional Vitals: Vital Signs Temp Pulse Resp BP Pulse Ox O2 Del Method 97.4 F 93 H 18 134/86 93 12/27/21 07:10 12/27/21 07:10 12/27/21 07:10 12/27/21 07:10 12/27/21 07:10 12/27/21 07:10 Period Temp Pulse Resp BP Sys/Triplett Pulse Ox O2 Del Method O2 Flow Rate Last 24 Hr 97.4 F-98.7 F 93-103 16-28 112-134/78-91 90-98 Room Air-Room Air Intake and Output 12/26/21 12/27/21 12/27/21 21:59 05:59 13:59 Intake Total 930 500 290 Balance 930 500 290 Weight 134.535 kg Intake & Output: Intake & Output 12/26/21 12/27/21 12/27/21 21:59 05:59 13:59 Intake Total 930 500 290 Balance 930 500 290 Weight 134.535 kg Intake: IV 50 500 50 Vancomycin 1,500 mg In Sodium 500 Chloride 0.9% 500 ml @ 333.3 mls/hr IV Q12H [facility] Rx#: [id number] Rocephin 2 gm In Dextrose 5% in 50 50 Water 50 ml @ 100 mls/hr IV Q24H [facility] Rx#:[id number] Oral 880 240 Other: Meal Dinner Percent of Meal Consumed 100% Feeding Ability Independent # Voids 3 3 1 OBJ DATA Labs CBC & Chem 7: 12/27/21 05:55 12/27/21 05:54 Labs: Abnormal Lab Results 12/27/21 12/27/21 12/26/21 05:55 05:54 07:53 RBC 4.32 L 4.20 L Hgb 12.0 L 11.7 L Hct 38.5 L 37.4 L MCHC RDW 16.8 H 16.8 H Immature Gran % (Auto) Neut % (Auto) Lymph % (Auto) Lymph # (Auto) 1.17 L 1.10 L VBG Lactic Acid Sodium Potassium Chloride BUN 22 H Creatinine Glucose 138 H Calcium 8.3 L Total Bilirubin Direct Bilirubin 0.5 H GGT 125 H AST 48 H ALT 42 H Alkaline Phosphatase 136 H Lactate Dehydrogenase 365 H Total Protein 5.8 L Albumin 2.9 L 12/26/21 12/25/21 12/25/21 07:53 05:46 05:46 RBC 4.32 L Hgb 12.0 L Hct 38.8 L MCHC 30.9 L RDW 17.1 H Immature Gran % (Auto) 0.6 H Neut % (Auto) 79.9 H Lymph % (Auto) 11.5 L Lymph # (Auto) 0.98 L VBG Lactic Acid Sodium 131 L Potassium 3.2 L Chloride 92 L BUN 22 H 28 H Creatinine 1.4 H Glucose Calcium 8.3 L Total Bilirubin 1.5 H 2.1 H Direct Bilirubin 0.8 H GGT 118 H AST 53 H 77 H ALT 43 H 52 H Alkaline Phosphatase 118 H Lactate Dehydrogenase 366 H Total Protein 5.7 L Albumin 2.9 L 3.1 L 12/24/21 12/24/21 15:30 10:50 RBC Hgb Hct MCHC RDW Immature Gran % (Auto) Neut % (Auto) Lymph % (Auto) Lymph # (Auto) VBG Lactic Acid 3.0 H 2.6 H Sodium Potassium Chloride BUN Creatinine Glucose Calcium Total Bilirubin Direct Bilirubin GGT AST ALT Alkaline Phosphatase Lactate Dehydrogenase Total Protein Albumin Meds: Medications Acetaminophen (Acetaminophen 325 Mg Tablet) 650 mg PO Q6HP PRN; Protocol PRN Reason: Per Pain Protocol/Fever > 101 Albuterol/Ipratropium (Ipratropium/Albuterol 3 Ml Ampul.Neb) 3 ml NEB Q4HRT PRN PRN Reason: Wheezing Docusate Sodium (Docusate Sodium 100 Mg Capsule) 100 mg PO BID [facility] Last Admin: 12/27/21 08:05 Dose: 100 mg Heparin Sodium (Porcine) (Heparin 5,000 Unit/Ml Vial) 5,000 unit SQ Q12 [facility] Last Admin: 12/27/21 08:05 Dose: 5,000 unit Hydromorphone HCl (Hydromorphone 0.5 Mg/0.5 Ml Syringe) 0.5 mg IV Q4HP PRN; Protocol PRN Reason: Per Pain Protocol Vancomycin HCl 1,500 mg/ (Sodium Chloride) 500 mls @ 333.3 mls/hr IV Q12H [facility] Last Infusion: 12/26/21 22:00 Dose: Infused Ceftriaxone Sodium 2 gm/ (Dextrose) 50 mls @ 100 mls/hr IV Q24H [facility]; Protocol Last Infusion: 12/27/21 08:40 Dose: Infused Furosemide 250 mg/ Sodium (Chloride) 250 mls @ 67.268 mls/hr IV Q24H [facility]; Protocol Metoprolol Succinate (Metoprolol Succinate 50 Mg Tab.Xl.24h) 50 mg PO BID [facility] Last Admin: 12/27/21 08:05 Dose: 50 mg Mupirocin (Mupirocin Oint 2% 22gm) 1 dose NARES BID [facility] Last Admin: 12/27/21 08:05 Dose: 1 dose Ondansetron HCl (Ondansetron 4 Mg/2 Ml Vial) 4 mg IV Q6HP PRN PRN Reason: Nausea And Vomiting Oxycodone HCl (Oxycodone Hcl 5 Mg Tablet) 5 mg PO Q4HP PRN; Protocol PRN Reason: Per Pain Protocol Last Admin: 12/26/21 20:26 Dose: 5 mg Potassium Chloride (Potassium Chloride 20 Meq Tablet) [facility] Senna (Sennosides 1 Tablet) 2 tab PO HS [facility] Last Admin: 12/26/21 20:24 Dose: 2 tab Sodium Chloride (0.9 % Sodium Chloride 10 Ml Syringe) 10 ml IV Q8 [facility] Last Admin: 12/27/21 05:45 Dose: Not Given Vancomycin HCl (Vancomycin Per Pharmacy) 1 order IV UD [facility]; Protocol A/P Narrative A/P Narrative: Assessment: 41-year-old male with history of methamphetamine use, congestive heart failure, obesity admitted for sepsis secondary to scrotal cellulitis complicated by acute kidney injury and acute on chronic congestive heart failure. #Resolving sepsis secondary to scrotal cellulitis #Acute kidney injury secondary to sepsis #Acute on chronic heart failure, unspecified #Elevated LFTs #Methamphetamine use disorder #Obesity BMI 40 Plan -Vancomycin and Ceftriaxone for now. -Follow-up blood cultures. -Start Lasix infusion. -Potassium supplementation. -Monitor renal function, I&O, daily weights. -ECHO report pending. -Analgesics as needed. -Consider Becerra catheter. -Regular low-sodium diet. -window glass cutter off. -DVT prophylaxis: Heparin SQ -CODE STATUS: Full -Disposition: Home when stable Time Spent With Patient Time: Total time spent is greater than 50% in coordination of care (as documented) at patient's floor/unit and/or counseling patient:
[2021-12-27] MEDS: oxyCODONE HCL 5 MG TABLET PO PRN (12:55)
[2021-12-27] MEDS ORDERED: ceFAZolin 2 GM in DEXTROSE 5% IN WATER 50 ML IV SCH (13:15)
[2021-12-27] MEDS: FUROSEMIDE 250 MG in 0.9 % SODIUM CHLORIDE 225 ML IV SCH ×3 (13:45→13:58)
[2021-12-27] MEDS: ceFAZolin 1 GM VIAL IV SCH ×2 (14:12→21:24)
[2021-12-27] MEDS ORDERED: FUROSEMIDE 20 MG/2 ML VIAL IV SCH (15:00)
[2021-12-27 18:24] LABS: Albumin 2.9 gm/dL (3.2-5.2); Blood Urea Nitrogen 26 mg/dL (6-20); Calcium 8.8 mg/dL (8.6-10.4); Carbon Dioxide 29 mmol/L (22-30); Chloride 97 mmol/L (96-108); Glomerular Filtration Rate 75; Glucose 114 mg/dL (70-105)
[2021-12-27] MEDS: SENNOSIDES 1 TABLET PO SCH (21:13)
[2021-12-27 22:49] LABS: Creatinine, Spot Urine 25.7 mg/dL (39.0-259.0); Pro:Crea Ratio 0.23 (<0.20)
[2021-12-28] MEDS: 0.9 % SODIUM CHLORIDE 10 ML SYRINGE IV SCH ×3 (05:41→21:53)
[2021-12-28] MEDS: ceFAZolin 1 GM VIAL IV SCH ×3 (05:41→21:53)
[2021-12-28] MEDS: oxyCODONE HCL 5 MG TABLET PO PRN ×2 (05:52→21:52)
[2021-12-28 06:06] LABS: Basophils # (Auto) 0 K/mcL (0.00-0.30); Basophils % (Auto) 0 % (0.0-2.0); Eosinophils # (Auto) 0.27 K/mcL (0.00-0.70); Eosinophils % (Auto) 3.7 % (0.0-7.0); Hematocrit 40.4 % (40.1-51.0); Hemoglobin 12.6 g/dL (13.7-17.5); Lymphocytes # (Auto) 1.82 K/mcL (1.50-4.80); Lymphocytes % (Auto) 25.1 % (15.5-49.0); Mean Corpuscular HGB Conc 31.2 g/dL (31.0-36.0); Mean Platelet Volume 9.3 fL (8.8-12.5); Monocytes # (Auto) 0.54 K/mcL (0.10-0.90); Monocytes % (Auto) 7.4 % (1.0-12.0); Neutrophils % (Auto) 63.4 % (38.0-78.0); Platelet Count 266 K/mcL (140-440); RBC 4.54 M/mcL (4.63-6.08); Red Cell Distribution Width 17.1 % (11.5-14.5); WBC 7.3 K/mcL (4.5-11.0)
[2021-12-28 06:58] LABS: ALT/SGPT 38 U/L (<40); AST/SGOT 49 U/L (<40); Albumin/Globulin Ratio 0.9 (1.0-2.3); Alkaline Phosphatase 130 U/L (39-117); Bilirubin,Direct 0.5 mg/dL (<0.3); Bilirubin,Total 0.8 mg/dL (0.1-1.0); Blood Urea Nitrogen 22 mg/dL (6-20); Calcium 8.9 mg/dL (8.6-10.4); Carbon Dioxide 25 mmol/L (22-30); Chloride 98 mmol/L (96-108); Globulin 3.3 gm/dL (2.2-3.7); Glomerular Filtration Rate 83; Glucose 114 mg/dL (70-105); Lactate Dehydrogenase 385 U/L (135-225); Phosphorous 4.1 mg/dL (2.5-4.5); Triglycerides 110 mg/dL (<150); Uric Acid 7.2 mg/dL (2.5-8.0)
[2021-12-28] MEDS: POTASSIUM CHLORIDE 20 MEQ TABLET PO SCH (07:46)
--- NOTE | 2021-12-28 08:47 | EKG ---
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
[2021-12-28] MEDS: HEPARIN 5,000 UNIT/ML VIAL SQ SCH ×2 (09:04→21:53)
[2021-12-28] MEDS: DOCUSATE SODIUM 100 MG CAPSULE PO SCH ×2 (09:04→21:52)
[2021-12-28] MEDS: METOPROLOL SUCCINATE 50 MG TAB.XL.24H PO SCH (09:04)
[2021-12-28] MEDS: MUPIROCIN OINT 2% 22GM NARES SCH ×2 (09:04→21:53)
[2021-12-28] MEDS: LISINOPRIL 2.5 MG TABLET PO SCH (09:05)
--- NOTE | 2021-12-28 13:23 | Internal Med Progress Note ---
SUBJECTIVE Subjective Patient information: Note initiated : 12/28/21 at 1:21 pm Service Date, if different from initiated Date: [] Patient: Wilner Romero a 41 y/o M admitted on 12/24/21 for cellulitis not going away. Chief Complaint: [] Interval history: Mr. Romero is a 41 year old M history of meth use, CHF, presenting with abdominal and scrotal swelling and pain. He presented to our ED 2 weeks ago for similar complaints, was being diagnosed with bilateral epididymis, and was being discharged home with oral doxycycline. He stated that he finished the antibiotics but the swelling and pain persist and get worse so he returned to our ED today for reevaluation and treatments. He is committing of lower abdominal and scrotal swelling and pain, the nature of the pain is " distention", mild to moderate. He denies any fever, chills, or diaphoresis. He is also commenting of bilateral leg swellings. He is adamant about his methamphetamine use and he did smoke it earlier this morning. Denies any shortness of breath. Denies any chest pain or palpitations. Vital signs significant for tachycardia heart rate in the 1 teens beats per minute, tachypnea rate of breathing up to the mid 30s breaths per minute. Labs significant for leukocytosis with WBC 14.3. Lactic acid 3.0. Potasssium 5.4. PCO creatinine 1.6. Procalcitonin 0.46. UA suggesting the presence of urinary tract infections. Urine drug screen positive for methamphetamine. CT abdomen pelvis showing severe and extensive subcutaneous edema with marked scrotal edema and enlargement. No soft tissue gas or focal abscess. No evidence for necrotizing fasciitis. Scrotal ultrasound showing normal testicles. Epididymis is suboptimally evaluated bilaterally but there is no definite abnormalities. Severe scrotal edema or cellulitis and marked scrotal thickening. 12/25: Afebrile overnight. Blood and urine culture no growth today. Patient is coming of mild to moderate lower abdominal pain as well as scrotal swelling and pain. Denies any fever chills or diaphoresis. He just being tired. Continue diuretics with IV Lasix. Continue broad-spectrum antibiotics with vancomycin and Zosyn. 2000 cc/day fluid restrictions. 12/26 Afebrile overnight, leukocytosis resolved. Renal function improved, replaced potassium. Increased Lasix from 20 mg to 40 mg IV BID, continue Vancomycin IV, started Ceftriaxone and discontinued Zosyn. MRSA nasal PCR positive. LFT's i mproving. Discontinued Toradol and Lisinopril for MAKENNA. 12/27 Afebrile overnight, renal function stable. The patient is diuresing but still markedly edematous. Transition to Lasix infusion, transfer to PCU for closer monitoring, court monitor while diuresing with IV Lasix. Check urine protein creatinine ratio. Transthoracic echocardiogram result pending. Continues on vancomycin and ceftriaxone. Preliminary blood culture results showing no growth to date. LFTs improving. Hepatitis C antibody nonreactive, hepatitis B surface antigen negative. 12/28 Tachycardia overnight, low normal blood pressures, afebrile. Diuresing well, electrolytes and renal function stable, continues on Lasix infusion. Reduce Toprol from 50 mg twice daily to 25 mg twice daily for a low normal blood pressu re, continue lisinopril 2.5 mg daily. Echocardiogram results show reduced LV ejection fraction of 15 to 20%. EKG did not show any acute ischemic changes, check troponin level, mildly elevated 0.03, repeat 0.03. Discussed with cardiology, Dr. De La Torre, he did not feel there was a need for urgent ischemic work-up for this patient. We will continue with diuresis until volume status has improved and focus on titrating goal-directed medical therapy to include beta-luiz, ATIF inhibitor, possible mineralocorticoid receptor antagonist. Started cefazolin for cellulitis, discontinued ceftriaxone. Physical exam Head: Atraumatic, normal inspection. Eyes: normal appearance, no scleral icterus. Neck: full ROM Respiratory: no respiratory distress. Cardiovascular: normal rate and rhythm, S1, S2. GI/Abdominal: distended, soft, no guarding, mild tenderness over cellulitis on lower abdomen. : scrotal and penis edema Extremities: Bilateral lower extremity pitting edema, full range of motion, nontender. Neurological: CN II-XII intact, intact motor, intact sensation. Psychiatric: normal mood. Skin: warmth, redness, tenderness over lower abdomen, scrotum, groin, and bilateral lower extremities. Constitutional Vitals: Vital Signs Temp Pulse Resp BP Pulse Ox O2 Del Method O2 Flow Rate 98.6 F 95 H 18 106/72 93 2 12/28/21 12:01 12/28/21 12:01 12/28/21 12:01 12/28/21 12:01 12/28/21 12:01 12/28/21 12:01 12/28/21 10:01 Period Temp Pulse Resp BP Sys/Triplett Pulse Ox O2 Del Method O2 Flow Rate Last 24 Hr 96.5 F-98.6 F 65-108 104-132/72-105 79-100 Nasal Cannula-Room Air 2-2 Intake and Output 12/27/21 12/28/21 12/28/21 21:59 05:59 13:59 Intake Total 857 1240 300 Output Total 2580 1575 575 Balance -1985 -804 -028 Weight 134.535 kg Intake & Output: Intake & Output 12/27/21 12/28/21 12/28/21 21:59 05:59 13:59 Intake Total 857 1240 300 Output Total 2580 1575 575 Balance -9485 -998 -286 Weight 134.535 kg Intake: IV 27 Lasix 250 mg In Sodium Chloride 27 0.9% 225 ml @ 10 MG/HR 10 mls/ hr IV Q24H [facility] Rx#:[id number] Oral 830 1240 300 Output: Void Amount 2580 1571 575 Other: Meal Dinner Breakfast Percent of Meal Consumed 100% 100% Urine Appearance Clear Clear Urine Color Bright Yellow Bright Yellow Urine Odor Normal OBJ DATA Labs CBC & Chem 7: 12/28/21 04:57 12/28/21 04:57 Labs: Abnormal Lab Results 12/28/21 12/28/21 12/27/21 04:57 04:57 19:32 RBC 4.54 L Hgb 12.6 L Hct RDW 17.1 H Lymph # (Auto) Potassium BUN 22 H Glucose 114 H Calcium Total Bilirubin Direct Bilirubin 0.5 H GGT 130 H AST 49 H ALT Alkaline Phosphatase 130 H Lactate Dehydrogenase 385 H Troponin T Total Protein Albumin 3.0 L Albumin/Globulin Ratio 0.9 L Ur Random Creatinine 25.7 L U [place] Prot/Creat Ratio 0.23 H 12/27/21 12/27/21 12/27/21 17:10 17:10 13:27 RBC Hgb Hct RDW Lymph # (Auto) Potassium BUN 26 H Glucose 114 H Calcium Total Bilirubin Direct Bilirubin GGT AST ALT Alkaline Phosphatase Lactate Dehydrogenase Troponin T 0.03 H 0.03 H Total Protein Albumin 2.9 L Albumin/Globulin Ratio Ur Random Creatinine U [place] Prot/Creat Ratio 12/27/21 12/27/21 12/26/21 05:55 05:54 07:53 RBC 4.32 L 4.20 L Hgb 12.0 L 11.7 L Hct 38.5 L 37.4 L RDW 16.8 H 16.8 H Lymph # (Auto) 1.17 L 1.10 L Potassium BUN 22 H Glucose 138 H Calcium 8.3 L Total Bilirubin Direct Bilirubin 0.5 H GGT 125 H AST 48 H ALT 42 H Alkaline Phosphatase 136 H Lactate Dehydrogenase 365 H Troponin T Total Protein 5.8 L Albumin 2.9 L Albumin/Globulin Ratio Ur Random Creatinine U [place] Prot/Creat Ratio 12/26/21 07:53 RBC Hgb Hct RDW Lymph # (Auto) Potassium 3.2 L BUN 22 H Glucose Calcium 8.3 L Total Bilirubin 1.5 H Direct Bilirubin 0.8 H GGT 118 H AST 53 H ALT 43 H Alkaline Phosphatase Lactate Dehydrogenase 366 H Troponin T Total Protein 5.7 L Albumin 2.9 L Albumin/Globulin Ratio Ur Random Creatinine U [place] Prot/Creat Ratio Meds: Medications Acetaminophen (Acetaminophen 325 Mg Tablet) 650 mg PO Q6HP PRN; Protocol PRN Reason: Per Pain Protocol/Fever > 101 Albuterol/Ipratropium (Ipratropium/Albuterol 3 Ml Ampul.Neb) 3 ml NEB Q4HRT PRN PRN Reason: Wheezing Cefazolin Sodium (Cefazolin 1 Gm Vial) 2 gm IV Q8H [facility] Last Admin: 12/28/21 05:41 Dose: 2 gm Docusate Sodium (Docusate Sodium 100 Mg Capsule) 100 mg PO BID [facility] Last Admin: 12/28/21 09:04 Dose: 100 mg Heparin Sodium (Porcine) (Heparin 5,000 Unit/Ml Vial) 5,000 unit SQ Q12 [facility] Last Admin: 12/28/21 09:04 Dose: 5,000 unit Hydromorphone HCl (Hydromorphone 0.5 Mg/0.5 Ml Syringe) 0.5 mg IV Q4HP PRN; Protocol PRN Reason: Per Pain Protocol Furosemide 250 mg/ Sodium (Chloride) 250 mls @ 10 mls/hr IV Q24H [facility]; Protocol Last Titration: 12/27/21 16:27 Dose: 5 mg/hr, 5 mls/hr Lisinopril (Lisinopril 2.5 Mg Tablet) 2.5 mg PO DAILY [facility] Last Admin: 12/28/21 09:05 Dose: 2.5 mg Metoprolol Succinate (Metoprolol Succinate 50 Mg Tab.Xl.24h) 50 mg PO BID [facility] Last Admin: 12/28/21 09:04 Dose: 50 mg Mupirocin (Mupirocin Oint 2% 22gm) 1 dose NARES BID [facility] Last Admin: 12/28/21 09:04 Dose: 1 dose Ondansetron HCl (Ondansetron 4 Mg/2 Ml Vial) 4 mg IV Q6HP PRN PRN Reason: Nausea And Vomiting Oxycodone HCl (Oxycodone Hcl 5 Mg Tablet) 5 mg PO Q4HP PRN; Protocol PRN Reason: Per Pain Protocol Last Admin: 12/28/21 05:52 Dose: 5 mg Potassium Chloride (Potassium Chloride 20 Meq Tablet) 40 meq PO QAMCC [facility] Last Admin: 12/28/21 07:46 Dose: 40 meq Senna (Sennosides 1 Tablet) 2 tab PO HS [facility] Last Admin: 12/27/21 21:13 Dose: 2 tab Sodium Chloride (0.9 % Sodium Chloride 10 Ml Syringe) 10 ml IV Q8 [facility] Last Admin: 12/28/21 05:41 Dose: 10 ml A/P Narrative A/P Narrative: Assessment: 41-year-old male with history of methamphetamine use, congestive heart failure, obesity admitted for severe volume overload secondary to acute/subacute systolic heart failure complicated by scrotal edema and cellulitis resulting in sepsis complicated by acute kidney injury. The cause of systolic heart failure is not clear however could be secondary to methamphetamine use. #Acute systolic heart failure of uncertain etiology, possibly methamphetamine use #Resolved sepsis secondary to scrotal cellulitis #Resolved acute kidney injury secondary to sepsis #Elevated LFTs likely due to congestive hepatopathy, improving with diuresis #Methamphetamine use disorder #Obesity BMI 40 Plan -Cefazolin 2 g IV every 8 hours for a cellulitis. -Follow-up blood cultures-NGTD. -Continue Lasix infusion. -Monitor electrolytes and renal function, I&O, daily weights. -Toprol 25 mg twice daily, lisinopril 2.5 mg daily for HFrEF, titrate as tolerated. -Analgesics as needed. -Regular low-sodium diet. 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 Cardiology referral at discharge. Time Spent With Patient Time: Total time spent is greater than 50% in coordination of care (as documented) at patient's floor/unit and/or counseling patient:
[2021-12-28] MEDS: FUROSEMIDE 250 MG in 0.9 % SODIUM CHLORIDE 225 ML IV SCH (14:10)
[2021-12-28 18:34] LABS: Albumin 3.1 gm/dL (3.2-5.2); Blood Urea Nitrogen 22 mg/dL (6-20); Calcium 8.7 mg/dL (8.6-10.4); Carbon Dioxide 31 mmol/L (22-30); Chloride 96 mmol/L (96-108); Glomerular Filtration Rate 75; Glucose 107 mg/dL (70-105)
[2021-12-28] MEDS ORDERED: POTASSIUM CHLORIDE 20 MEQ TABLET PO SCH (21:30)
[2021-12-28] MEDS: METOPROLOL SUCCINATE 25 MG TAB.XL.24H PO SCH (21:52)
[2021-12-28] MEDS: SENNOSIDES 1 TABLET PO SCH (21:52)
[2021-12-29] MEDS: ceFAZolin 1 GM VIAL IV SCH ×3 (05:42→21:50)
[2021-12-29] MEDS: 0.9 % SODIUM CHLORIDE 10 ML SYRINGE IV SCH ×3 (05:43→21:50)
[2021-12-29 06:09] LABS: Basophils # (Auto) 0.01 K/mcL (0.00-0.30); Basophils % (Auto) 0.1 % (0.0-2.0); Eosinophils # (Auto) 0.12 K/mcL (0.00-0.70); Eosinophils % (Auto) 1.7 % (0.0-7.0); Hematocrit 37.2 % (40.1-51.0); Hemoglobin 11.8 g/dL (13.7-17.5); Lymphocytes # (Auto) 1.44 K/mcL (1.50-4.80); Lymphocytes % (Auto) 20.6 % (15.5-49.0); Mean Cell Volume 87.7 fL (80.0-100.0); Mean Corpuscular HGB Conc 31.7 g/dL (31.0-36.0); Mean Platelet Volume 9.5 fL (8.8-12.5); Monocytes # (Auto) 0.43 K/mcL (0.10-0.90); Monocytes % (Auto) 6.2 % (1.0-12.0); Platelet Count 249 K/mcL (140-440); RBC 4.24 M/mcL (4.63-6.08); Red Cell Distribution Width 17.1 % (11.5-14.5)
[2021-12-29 07:23] LABS: ALT/SGPT 27 U/L (<40); AST/SGOT 46 U/L (<40); Albumin 3.1 gm/dL (3.2-5.2); Alkaline Phosphatase 116 U/L (39-117); Bilirubin,Direct 0.5 mg/dL (<0.3); Bilirubin,Total 1.1 mg/dL (0.1-1.0); Blood Urea Nitrogen 20 mg/dL (6-20); Calcium 8.8 mg/dL (8.6-10.4); Carbon Dioxide 27 mmol/L (22-30); Chloride 99 mmol/L (96-108); Glomerular Filtration Rate 83; Glucose 104 mg/dL (70-105); Lactate Dehydrogenase 351 U/L (135-225); Phosphorous 3.2 mg/dL (2.5-4.5); Triglycerides 96 mg/dL (<150)
[2021-12-29] MEDS ORDERED: MAGNESIUM SULFATE 2 GM/50 ML BAG IV ONE (07:48)
[2021-12-29] MEDS: HEPARIN 5,000 UNIT/ML VIAL SQ SCH ×2 (08:36→20:08)
[2021-12-29] MEDS: POTASSIUM CHLORIDE 20 MEQ TABLET PO SCH (08:37)
[2021-12-29] MEDS: LISINOPRIL 2.5 MG TABLET PO SCH (08:37)
[2021-12-29] MEDS: METOPROLOL SUCCINATE 25 MG TAB.XL.24H PO SCH ×2 (08:37→20:09)
[2021-12-29] MEDS: THIAMINE 100 MG TABLET PO SCH (08:37)
[2021-12-29] MEDS: DOCUSATE SODIUM 100 MG CAPSULE PO SCH ×2 (08:37→20:09)
[2021-12-29] MEDS: MUPIROCIN OINT 2% 22GM NARES SCH ×2 (08:40→20:37)
--- NOTE | 2021-12-29 12:50 | Internal Med Progress Note ---
SUBJECTIVE Subjective Patient information: Note initiated : 12/29/21 at 12:48 pm Service Date, if different from initiated Date: [] Patient: Wilner Romero 41 y/o M admitted on 12/24/21 for cellulitis not going away. Chief Complaint: [] Interval history: Mr. Romero is a 41 year old M history of meth use, CHF, presenting with abdominal and scrotal swelling and pain. He presented to our ED 2 weeks ago for similar complaints, was being diagnosed with bilateral epididymis, and was being discharged home with oral doxycycline. He stated that he finished the antibiotics but the swelling and pain persist and get worse so he returned to [facility] ED today for reevaluation and treatments. He is committing of lower abdominal and scrotal swelling and pain, the nature of the pain is " distention", mild to moderate. He denies any fever, chills, or diaphoresis. He is also commenting of bilateral leg swellings. He is adamant about his methamphetamine use and he did smoke it earlier this morning. Denies any shortness of breath. Denies any chest pain or palpitations. Vital signs significant for tachycardia heart rate in the 1 teens beats per minute, tachypnea rate of breathing up to the mid 30s breaths per minute. Labs significant for leukocytosis with WBC 14.3. Lactic acid 3.0. Potasssium 5.4. PCO creatinine 1.6. Procalcitonin 0.46. UA suggesting the presence of urinary tract infections. Urine drug screen positive for methamphetamine. CT abdomen pelvis showing severe and extensive subcutaneous edema with marked scrotal edema and enlargement. No soft tissue gas or focal abscess. No evidence for necrotizing fasciitis. Scrotal ultrasound showing normal testicles. Epididymis is suboptimally evaluated bilaterally but there is no definite abnormalities. Severe scrotal edema or cellulitis and marked scrotal thickening. 12/25: Afebrile overnight. Blood and urine culture no growth today. Patient is coming of mild to moderate lower abdominal pain as well as scrotal swelling and pain. Denies any fever chills or diaphoresis. He just being tired. Continue diuretics with IV Lasix. Continue broad-spectrum antibiotics with vancomycin and Zosyn. 2000 cc/day fluid restrictions. 12/26 Afebrile overnight, leukocytosis resolved. Renal function improved, replaced potassium. Increased Lasix from 20 mg to 40 mg IV BID, continue Vancomycin IV, started Ceftriaxone and discontinued Zosyn. MRSA nasal PCR positive. LFT's improving. Discontinued Toradol and Lisinopril for MAKENNA. 12/27 Afebrile overnight, renal function stable. The patient is diuresing but still markedly edematous. 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 Check urine protein creatinine ratio, mildly elevated not consistent with nephrotic syndrome. Transthoracic echocardiogram result pending. Continues on vancomycin and ceftriaxone. Preliminary blood culture results showing no growth to date. LFTs improving. Hepatitis C antibody nonreactive, hepatitis B surface antigen negative. 12/28 Tachycardia overnight, low normal blood pressures, afebrile. Diuresing well, electrolytes and renal function stable, continues on Lasix infusion. Reduce Toprol from 50 mg twice daily to 25 mg twice daily for a low normal blood pressure, continue lisinopril 2.5 mg daily. Echocardiogram results show reduced LV ejection fraction of 15 to 20%. EKG did not show any acute ischemic changes, check troponin level, mildly elevated 0.03, repeat 0.03. Discussed with cardiology, Dr. De La Torre, he did not feel there was a need for urgent ischemic work-up for this patient. We will continue with diuresis until volume status has improved and focus on titrating goal-directed medical therapy to include beta-luiz, ATIF inhibitor, possible mineralocorticoid receptor antagonist. Started cefazolin for cellulitis, discontinued ceftriaxone. 12/29 Some improvement in volume status but progress has been slow. Renal function and electrolytes stable, increased Lasix infusion to 10 mg/h, change fluid restriction to 2 L/day. Physical exam Head: Atraumatic, normal inspection. Eyes: normal appearance, no scleral icterus. Neck: full ROM Respiratory: no respiratory distress. Cardiovascular: normal rate and rhythm, S1, S2. GI/Abdominal: distended, soft, no guarding, mild tenderness over cellulitis on lower abdomen. : scrotal and penis edema Extremities: Bilateral lower extremity pitting edema, full range of motion, nontender. Neurological: CN II-XII intact, intact motor, intact sensation. Psychiatric: normal mood. Skin: warmth, redness, tenderness over lower abdomen, scrotum, groin, and bilateral lower extremities. Constitutional Vitals: Vital Signs Temp Pulse Resp BP Pulse Ox O2 Del Method O2 Flow Rate 97.1 F 99 H 18 126/93 98 2 12/29/21 08:12 12/29/21 11:14 12/29/21 10:12 12/29/21 10:12 12/29/21 11:14 12/29/21 08:00 12/29/21 00:39 Period Temp Pulse Resp BP Sys/Triplett Pulse Ox O2 Del Method O2 Flow Rate Last 24 Hr 96.3 F-98.6 F 86-110 - 107-141/76-117 95-100 Nasal Cannula-Room Air 2 Intake and Output 12/28/21 12/29/21 12/29/21 21:59 05:59 13:59 Intake Total 4854 482 2269 Output Total 1375 1875 1100 Balance 224 -1475 239 Weight 133.175 kg Intake & Output: Intake & Output 12/28/21 12/29/21 12/29/21 21:59 05:59 13:59 Intake Total 6857 726 1188 Output Total 1375 1875 1100 Balance 224 -1475 239 Weight 133.175 kg Intake: IV 109 149 Lasix 250 mg In Sodium Chloride 109 99 0.9% 225 ml @ 10 MG/HR 10 mls/ hr IV Q24H [facility] Rx#:[id number] Oral [id number] Output: Void Amount 1375 1875 1100 Other: Meal Dinner Breakfast Percent of Meal Consumed 100% 100% Feeding Ability Independent Independent Urine Appearance Clear Clear Clear Urine Color Bright Yellow Bright Yellow Dark Yellow Urine Odor Normal Stool Size Large Stool Color Brown Stool Consistency Soft Formed # Bowel Movements 1 OBJ DATA Labs CBC & Chem 7: 12/29/21 04:57 12/29/21 04:57 Labs: Abnormal Lab Results 12/29/21 12/29/21 12/28/21 04:57 04:57 17:38 RBC 4.24 L Hgb 11.8 L Hct 37.2 L RDW 17.1 H Lymph # (Auto) 1.44 L Carbon Dioxide 31 H BUN 22 H Glucose 107 H Calcium Magnesium 1.5 L Total Bilirubin 1.1 H Direct Bilirubin 0.5 H GGT 123 H AST 46 H ALT Alkaline Phosphatase Lactate Dehydrogenase 351 H Troponin T Total Protein Albumin 3.1 L 3.1 L Albumin/Globulin Ratio Ur Random Creatinine U [place] Prot/Creat Ratio 12/28/21 12/28/21 12/27/21 04:57 04:57 19:32 RBC 4.54 L Hgb 12.6 L Hct RDW 17.1 H Lymph # (Auto) Carbon Dioxide BUN 22 H Glucose 114 H Calcium Magnesium Total Bilirubin Direct Bilirubin 0.5 H GGT 130 H AST 49 H ALT Alkaline Phosphatase 130 H Lactate Dehydrogenase 385 H Troponin T Total Protein Albumin 3.0 L Albumin/Globulin Ratio 0.9 L Ur Random Creatinine 25.7 L U [place] Prot/Creat Ratio 0.23 H 12/27/21 12/27/21 12/27/21 17:10 17:10 13:27 RBC Hgb Hct RDW Lymph # (Auto) Carbon Dioxide BUN 26 H Glucose 114 H Calcium Magnesium Total Bilirubin Direct Bilirubin GGT AST ALT Alkaline Phosphatase Lactate Dehydrogenase Troponin T 0.03 H 0.03 H Total Protein Albumin 2.9 L Albumin/Globulin Ratio Ur Random Creatinine U [place] Prot/Creat Ratio 12/27/21 12/27/21 05:55 05:54 RBC 4.32 L Hgb 12.0 L Hct 38.5 L RDW 16.8 H Lymph # (Auto) 1.17 L Carbon Dioxide BUN 22 H Glucose 138 H Calcium 8.3 L Magnesium Total Bilirubin Direct Bilirubin 0.5 H GGT 125 H AST 48 H ALT 42 H Alkaline Phosphatase 136 H Lactate Dehydrogenase 365 H Troponin T Total Protein 5.8 L Albumin 2.9 L Albumin/Globulin Ratio Ur Random Creatinine U [place] Prot/Creat Ratio Meds: Medications Acetaminophen (Acetaminophen 325 Mg Tablet) 650 mg PO Q6HP PRN; Protocol PRN Reason: Per Pain Protocol/Fever > 101 Albuterol/Ipratropium (Ipratropium/Albuterol 3 Ml Ampul.Neb) 3 ml NEB Q4HRT PRN PRN Reason: Wheezing Cefazolin Sodium (Cefazolin 1 Gm Vial) 2 gm IV Q8H [facility] Last Admin: 12/29/21 05:42 Dose: 2 gm Docusate Sodium (Docusate Sodium 100 Mg Capsule) 100 mg PO BID [facility] Last Admin: 12/29/21 08:37 Dose: 100 mg Heparin Sodium (Porcine) (Heparin 5,000 Unit/Ml Vial) 5,000 unit SQ Q12 [facility] Last Admin: 12/29/21 08:36 Dose: 5,000 unit Hydromorphone HCl (Hydromorphone 0.5 Mg/0.5 Ml Syringe) 0.5 mg IV Q4HP PRN; Protocol PRN Reason: Per Pain Protocol Furosemide 250 mg/ Sodium (Chloride) 250 mls @ 10 mls/hr IV Q24H [facility]; Protocol Last Titration: 12/29/21 10:00 Dose: 10 mg/hr, 10 mls/hr Lisinopril (Lisinopril 2.5 Mg Tablet) 2.5 mg PO DAILY [facility] Last Admin: 12/29/21 08:37 Dose: 2.5 mg Metoprolol Succinate (Metoprolol Succinate 25 Mg Tab.Xl.24h) 25 mg PO BID [facility] Last Admin: 12/29/21 08:37 Dose: 25 mg Mupirocin (Mupirocin Oint 2% 22gm) 1 dose NARES BID [facility] Last Admin: 12/29/21 08:40 Dose: 1 dose Ondansetron HCl (Ondansetron 4 Mg/2 Ml Vial) 4 mg IV Q6HP PRN PRN Reason: Nausea And Vomiting Oxycodone HCl (Oxycodone Hcl 5 Mg Tablet) 5 mg PO Q4HP PRN; Protocol PRN Reason: Per Pain Protocol Last Admin: 12/28/21 21:52 Dose: 5 mg Potassium Chloride (Potassium Chloride 20 Meq Tablet) 40 meq PO QAMCC [facility] Last Admin: 12/29/21 08:37 Dose: 40 meq Senna (Sennosides 1 Tablet) 2 tab PO HS [facility] Last Admin: 12/28/21 21:52 Dose: 2 tab Sodium Chloride (0.9 % Sodium Chloride 10 Ml Syringe) 10 ml IV Q8 [facility] Last Admin: 12/29/21 05:43 Dose: 10 ml Thiamine HCl (Thiamine 100 Mg Tablet) 100 mg PO DAILY [facility] Last Admin: 12/29/21 08:37 Dose: 100 mg A/P Narrative A/P Narrative: Assessment: 41-year-old male with history of methamphetamine use, congestive heart failure, obesity admitted for severe volume overload secondary to acute/subacute systolic heart failure complicated by scrotal edema and cellulitis resulting in sepsis complicated by acute kidney injury. The cause of systolic heart failure is not clear however could be secondary to methamphetamine use. #Acute on chronic systolic heart failure resulting in severe volume overload #Resolved sepsis secondary to scrotal cellulitis #Resolved acute kidney injury secondary to sepsis #Elevated LFTs likely due to congestive hepatopathy, improving with diuresis #Methamphetamine use disorder #Obesity BMI 40 Plan -Cefazolin 2 g IV every 8 hours for a cellulitis. -Continue Lasix infusion, closely monitor electrolytes and renal function, I&O, daily weights. -Toprol 25 mg twice daily, lisinopril 2.5 mg daily for HFrEF, titrate as tolerated. -Analgesics as needed. -Regular low-sodium diet and fluid restriction. 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 Cardiology referral at discharge. Time Spent With Patient Time: Total time spent is greater than 50% in coordination of care (as documented) at patient's floor/unit and/or counseling patient:
[2021-12-29] MEDS: FUROSEMIDE 250 MG in 0.9 % SODIUM CHLORIDE 225 ML IV SCH (14:49)
[2021-12-29] MEDS ORDERED: NITROGLYCERIN 0.4 MG TAB.SUBL SL PRN (18:21)
[2021-12-29] MEDS: SENNOSIDES 1 TABLET PO SCH (20:09)
[2021-12-29 21:46] LABS: Blood Urea Nitrogen 23 mg/dL (6-20); Calcium 8.9 mg/dL (8.6-10.4); Carbon Dioxide 29 mmol/L (22-30); Chloride 96 mmol/L (96-108); Glomerular Filtration Rate 75; Glucose 89 mg/dL (70-105); Phosphorous 3.4 mg/dL (2.5-4.5)
[2021-12-30] MEDS: 0.9 % SODIUM CHLORIDE 10 ML SYRINGE IV SCH ×3 (05:38→21:58)
[2021-12-30] MEDS: ceFAZolin 1 GM VIAL IV SCH ×3 (05:38→21:58)
[2021-12-30 07:06] LABS: ALT/SGPT 21 U/L (<40); AST/SGOT 45 U/L (<40); Albumin 3.1 gm/dL (3.2-5.2); Alkaline Phosphatase 118 U/L (39-117); Bilirubin,Direct 0.6 mg/dL (<0.3); Bilirubin,Total 1.3 mg/dL (0.1-1.0); Blood Urea Nitrogen 16 mg/dL (6-20); Calcium 8.9 mg/dL (8.6-10.4); Carbon Dioxide 29 mmol/L (22-30); Chloride 95 mmol/L (96-108); Globulin 3.1 gm/dL (2.2-3.7); Glomerular Filtration Rate 83; Glucose 114 mg/dL (70-105); Lactate Dehydrogenase 358 U/L (135-225); Phosphorous 3.1 mg/dL (2.5-4.5); Triglycerides 94 mg/dL (<150); Uric Acid 8.5 mg/dL (2.5-8.0)
[2021-12-30] MEDS: DOCUSATE SODIUM 100 MG CAPSULE PO SCH ×3 (09:31→21:28)
[2021-12-30] MEDS: METOPROLOL SUCCINATE 25 MG TAB.XL.24H PO SCH ×2 (09:31→21:28)
[2021-12-30] MEDS: THIAMINE 100 MG TABLET PO SCH (09:31)
[2021-12-30] MEDS: POTASSIUM CHLORIDE 20 MEQ TABLET PO SCH (09:31)
[2021-12-30] MEDS: MUPIROCIN OINT 2% 22GM NARES SCH ×2 (09:31→21:28)
[2021-12-30] MEDS: HEPARIN 5,000 UNIT/ML VIAL SQ SCH ×2 (09:32→21:28)
[2021-12-30] MEDS: LISINOPRIL 2.5 MG TABLET PO SCH (09:32)
--- NOTE | 2021-12-30 10:54 | Internal Med Progress Note ---
SUBJECTIVE Subjective Patient information: Note initiated : 12/30/21 at 10:50 am Service Date, if different from initiated Date: [] Patient: Wilner Romero 41 y/o M admitted on 12/24/21 for cellulitis not going away. Chief Complaint: [] Interval history: Mr. Romero is a 41 year old M history of meth use, CHF, presenting with abdominal and scrotal swelling and pain. He presented to our ED 2 weeks ago for similar complaints, was being diagnosed with bilateral epididymis, and was being discharged home with oral doxycycline. He stated that he finished the antibiotics but the swelling and pain persist and get worse so [facility] for reevaluation and treatments. He is committing of lower abdominal and scrotal swelling and pain, the nature of the pain is " distention", mild to moderate. He denies any fever, chills, or diaphoresis. He is also commenting of bilateral leg swellings. He is adamant about his methamphetamine use and he did smoke it earlier this morning. Denies any shortness of breath. Denies any chest pain or palpitations. Vital signs significant for tachycardia heart rate in the 1 teens beats per minute, tachypnea rate of breathing up to the mid 30s breaths per minute. Labs significant for leukocytosis with WBC 14.3. Lactic acid 3.0. Potasssium 5.4. PCO creatinine 1.6. Procalcitonin 0.46. UA suggesting the presence of urinary tract infections. Urine drug screen positive for methamphetamine. CT abdomen pelvis showing severe and extensive subcutaneous edema with marked scrotal edema and enlargement. No soft tissue gas or focal abscess. No evidence for necrotizing fasciitis. Scrotal ultrasound showing normal testicles. Epididymis is suboptimally evaluated bilaterally but there is no definite abnormalities. Severe scrotal edema or cellulitis and marked scrotal thickening. 12/25: Afebrile overnight. Blood and urine culture no growth today. Patient is coming of mild to moderate lower abdominal pain as well as scrotal swelling and pain. Denies any fever chills or diaphoresis. He just being tired. Continue diuretics with IV Lasix. Continue broad-spectrum antibiotics with vancomycin and Zosyn. 2000 cc/day fluid restrictions. 12/26 Afebrile overnight, leukocytosis resolved. Renal function improved, replaced potassium. Increased Lasix from 20 mg to 40 mg IV BID, continue Vancomycin IV, started Ceftriaxone and discontinued Zosyn. MRSA nasal PCR positive. LFT's improving. Discontinued Toradol and Lisinopril for MAKENNA. 12/27 Afebrile overnight, renal function stable. The patient is diuresing but still markedly edematous. 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 Check urine protein creatinine ratio, mildly elevated not consistent with nephrotic syndrome. Transthoracic echocardiogram result pending. Continues on vancomycin and ceftriaxone. Preliminary blood culture results showing no growth to date. LFTs improving. Hepatitis C antibody nonreactive, hepatitis B surface antigen negative. 12/28 Tachycardia overnight, low normal blood pressures, afebrile. Diuresing well, electrolytes and renal function stable, continues on Lasix infusion. Reduce Toprol from 50 mg twice daily to 25 mg twice daily for a low normal blood pressure, continue lisinopril 2.5 mg daily. Echocardiogram results show reduced LV ejection fraction of 15 to 20%. EKG did not show any acute ischemic changes, check troponin level, mildly elevated 0.03, repeat 0.03. Discussed with cardiology, Dr. De La Torre, he did not feel there was a need for urgent ischemic work-up for this patient. We will continue with diuresis until volume status has improved and focus on titrating goal-directed medical therapy to include beta-luiz, ATIF inhibitor, possible mineralocorticoid receptor antagonist. Started cefazolin for cellulitis, discontinued ceftriaxone. 12/29 Some improvement in volume status but progress has been slow. Renal function and electrolytes stable, increased Lasix infusion to 10 mg/h, change fluid restriction to 2 L/day. 12/30 Electrolytes and renal function stable. Unfortunately the patient has not keeping accurate urine output and refused a Becerra catheter however overall diu resis has improved and the patient's daily weights are decreasing. Will increase Lasix infusion to 12 mg/h and continue to monitor labs closely. Physical exam Head: Atraumatic, normal inspection. Eyes: normal appearance, no scleral icterus. Neck: full ROM Respiratory: no respiratory distress. Cardiovascular: normal rate and rhythm, S1, S2. GI/Abdominal: distended, soft, no guarding, mild tenderness over cellulitis on lower abdomen. : Improved scrotal and penis edema Extremities: Improving bilateral lower extremity pitting edema, full range of motion, nontender. Neurological: CN II-XII intact, intact motor, intact sensation. Psychiatric: normal mood. Skin: Improved warmth, redness, tenderness over lower abdomen, scrotum, groin, and bilateral lower extremities. Constitutional Vitals: Vital Signs Temp Pulse Resp BP Pulse Ox O2 Del Method O2 Flow Rate 97.5 F 95 H 20 130/74 91 2 12/30/21 08:16 12/30/21 08:16 12/30/21 10:02 12/30/21 10:02 12/30/21 10:02 12/30/21 10:02 12/30/21 04:06 Period Temp Pulse Resp BP Sys/Triplett Pulse Ox O2 Del Method O2 Flow Rate Last 24 Hr 96.4 F-98.1 F 95-108 16-24 111-152/74-125 90-100 Nasal Cannula-Room Air 2-2 Intake and Output 12/29/21 12/30/21 12/30/21 21:59 05:59 13:59 Intake Total 286 520 120 Output Total 1750 2125 1350 Balance -1464 -1605 -1230 Weight 129.909 kg Intake & Output: Intake & Output 12/29/21 12/30/21 12/30/21 21:59 05:59 13:59 Intake Total 286 520 120 Output Total 1750 2125 1350 Balance -1464 -1605 -1230 Weight 129.909 kg Intake: IV 50 Lasix 250 mg In Sodium Chloride 50 0.9% 225 ml @ 10 MG/HR 10 mls/ hr IV Q24H [facility] Rx#:[id number] Oral 236 520 120 Output: Void Amount 1650 2125 1350 Emesis 100 Other: Meal Dinner Percent of Meal Consumed 100% Feeding Ability Independent Urine Appearance Clear Clear Clear Urine Color Pale Pale Yellow Stool Size Moderate Stool Color Brown Stool Consistency Soft # Voids 2 # Bowel Movements 1 OBJ DATA Labs CBC & Chem 7: 12/29/21 04:57 12/30/21 04:52 Labs: Abnormal Lab Results 12/30/21 12/29/21 12/29/21 04:52 17:00 04:57 RBC Hgb Hct RDW Lymph # (Auto) Chloride 95 L Carbon Dioxide BUN 23 H Glucose 114 H Uric Acid 8.5 H Magnesium 1.5 L Total Bilirubin 1.3 H 1.1 H Direct Bilirubin 0.6 H 0.5 H GGT 130 H 123 H AST 45 H 46 H Alkaline Phosphatase 118 H Lactate Dehydrogenase 358 H 351 H Troponin T Albumin 3.1 L 3.0 L 3.1 L Albumin/Globulin Ratio Ur Random Creatinine U [place] Prot/Creat Ratio 12/29/21 12/28/21 12/28/21 04:57 17:38 04:57 RBC 4.24 L Hgb 11.8 L Hct 37.2 L RDW 17.1 H Lymph # (Auto) 1.44 L Chloride Carbon Dioxide 31 H BUN 22 H 22 H Glucose 107 H 114 H Uric Acid Magnesium Total Bilirubin Direct Bilirubin 0.5 H GGT 130 H AST 49 H Alkaline Phosphatase 130 H Lactate Dehydrogenase 385 H Troponin T Albumin 3.1 L 3.0 L Albumin/Globulin Ratio 0.9 L Ur Random Creatinine U [place] Prot/Creat Ratio 12/28/21 12/27/21 12/27/21 04:57 19:32 17:10 RBC 4.54 L Hgb 12.6 L Hct RDW 17.1 H Lymph # (Auto) Chloride Carbon Dioxide BUN Glucose Uric Acid Magnesium Total Bilirubin Direct Bilirubin GGT AST Alkaline Phosphatase Lactate Dehydrogenase Troponin T 0.03 H Albumin Albumin/Globulin Ratio Ur Random Creatinine 25.7 L U [place] Prot/Creat Ratio 0.23 H 12/27/21 12/27/21 17:10 13:27 RBC Hgb Hct RDW Lymph # (Auto) Chloride Carbon Dioxide BUN 26 H Glucose 114 H Uric Acid Magnesium Total Bilirubin Direct Bilirubin GGT AST Alkaline Phosphatase Lactate Dehydrogenase Troponin T 0.03 H Albumin 2.9 L Albumin/Globulin Ratio Ur Random Creatinine U [place] Prot/Creat Ratio Meds: Medications Acetaminophen (Acetaminophen 325 Mg Tablet) 650 mg PO Q6HP PRN; Protocol PRN Reason: Per Pain Protocol/Fever > 101 Albuterol/Ipratropium (Ipratropium/Albuterol 3 Ml Ampul.Neb) 3 ml NEB Q4HRT PRN PRN Reason: Wheezing Cefazolin Sodium (Cefazolin 1 Gm Vial) 2 gm IV Q8H [facility] Last Admin: 12/30/21 05:38 Dose: 2 gm Docusate Sodium (Docusate Sodium 100 Mg Capsule) 100 mg PO BID [facility] Last Admin: 12/30/21 10:48 Dose: Not Given Heparin Sodium (Porcine) (Heparin 5,000 Unit/Ml Vial) 5,000 unit SQ Q12 [facility] Last Admin: 12/30/21 09:32 Dose: 5,000 unit Hydromorphone HCl (Hydromorphone 0.5 Mg/0.5 Ml Syringe) 0.5 mg IV Q4HP PRN; Protocol PRN Reason: Per Pain Protocol Furosemide 250 mg/ Sodium (Chloride) 250 mls @ 10 mls/hr IV Q24H [facility]; Protocol Last Titration: 12/29/21 17:15 Dose: 10 mg/hr, 10 mls/hr Lisinopril (Lisinopril 2.5 Mg Tablet) 2.5 mg PO DAILY [facility] Last Admin: 12/30/21 09:32 Dose: 2.5 mg Metoprolol Succinate (Metoprolol Succinate 25 Mg Tab.Xl.24h) 25 mg PO BID [facility] Last Admin: 12/30/21 09:31 Dose: 25 mg Mupirocin (Mupirocin Oint 2% 22gm) 1 dose NARES BID [facility] Last Admin: 12/30/21 09:31 Dose: 1 dose Ondansetron HCl (Ondansetron 4 Mg/2 Ml Vial) 4 mg IV Q6HP PRN PRN Reason: Nausea And Vomiting Oxycodone HCl (Oxycodone Hcl 5 Mg Tablet) 5 mg PO Q4HP PRN; Protocol PRN Reason: Per Pain Protocol Last Admin: 12/28/21 21:52 Dose: 5 mg Potassium Chloride (Potassium Chloride 20 Meq Tablet) 40 meq PO QAMCC [facility] Last Admin: 12/30/21 09:31 Dose: 40 meq Senna (Sennosides 1 Tablet) 2 tab PO HS [facility] Last Admin: 12/29/21 20:09 Dose: 2 tab Sodium Chloride (0.9 % Sodium Chloride 10 Ml Syringe) 10 ml IV Q8 [facility] Last Admin: 12/30/21 05:38 Dose: 10 ml Thiamine HCl (Thiamine 100 Mg Tablet) 100 mg PO DAILY [facility] Last Admin: 12/30/21 09:31 Dose: 100 mg A/P Narrative A/P Narrative: Assessment: 41-year-old male with history of methamphetamine use, congestive heart failure, obesity admitted for severe volume overload secondary to acute/subacute systolic heart failure complicated by scrotal edema and cellulitis resulting in sepsis complicated by acute kidney injury. The patient's acute kidney injury resolved with IV antibiotics and diuresis. The patient continues to be diuresed on a Lasix infusion. #Acute on chronic systolic heart failure resulting in severe volume overload #Resolved sepsis secondary to scrotal cellulitis #Resolved acute kidney injury secondary to sepsis #Elevated LFTs likely due to congestive hepatopathy, improving with diuresis #Methamphetamine use disorder #Obesity BMI 40 Plan -Cefazolin 2 g IV every 8 hours for cellulitis, complete 7 to 10 days of IV or oral antibiotic treatment. -Continue Lasix infusion, closely monitor electrolytes and renal function, I&O, daily weights. -Toprol 25 mg twice daily, lisinopril 2.5 mg daily for HFrEF, titrate as tolerated. -Analgesics as needed. -Regular low-sodium diet and fluid restriction. 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 Cardiology referral at discharge. Time Spent With Patient Time: Total time spent is greater than 50% in coordination of care (as documented) at patient's floor/unit and/or counseling patient:
[2021-12-30] MEDS: FUROSEMIDE 250 MG in 0.9 % SODIUM CHLORIDE 225 ML IV SCH (11:42)
[2021-12-30] MEDS ORDERED: HYDROCHLOROTHIAZIDE 12.5 MG CAPSULE PO ONE (14:18)
--- NOTE | 2021-12-30 14:19 | Internal Med Progress Note ---
SUBJECTIVE Subjective Patient information: Note initiated : 12/30/21 at 2:11 pm Service Date, if different from initiated Date: [] Patient: Wilner Romero a 41 y/o M admitted on 12/24/21 for cellulitis not going away. Chief Complaint: [] Interval history: Mr. Romero is a 41 year old M history of meth use, CHF, presenting with abdominal and scrotal swelling and pain. He presented to our ED 2 weeks ago for similar complaints, was being diagnosed with bilateral epididymis, and was being discharged home with oral doxycycline. He stated that he finished the antibiotics but the swelling and pain persist and get worse so he returned to our ED today for reevaluation and treatments. He is committing of lower abdominal and scrotal swelling and pain, the nature of the pain is " distention", mild to moderate. He denies any fever, chills, or diaphoresis. He is also commenting of bilateral leg swellings. He is adamant about his methamphetamine use and he did smoke it earlier this morning. Denies any shortness of breath. Denies any chest pain or palpitations. Vital signs significant for tachycardia heart rate in the 1 teens beats per minute, tachypnea rate of breathing up to the mid 30s breaths per minute. Labs significant for leukocytosis with WBC 14.3. Lactic acid 3.0. Potasssium 5.4. PCO creatinine 1.6. Procalcitonin 0.46. UA suggesting the presence of urinary tract infections. Urine drug screen positive for methamphetamine. CT abdomen pelvis showing severe and extensive subcutaneous edema with marked scrotal edema and enlargement. No soft tissue gas or focal abscess. No evidence for necrotizing fasciitis. Scrotal ultrasound showing normal testicles. Epididymis is suboptimally evaluated bilaterally but there is no definite abnormalities. Severe scrotal edema or cellulitis and marked scrotal thickening. 12/25: Afebrile overnight. Blood and urine culture no growth today. Patient is coming of mild to moderate lower abdominal pain as well as scrotal swelling and pain. Denies any fever chills or diaphoresis. He just being tired. Continue diuretics with IV Lasix. Continue broad-spectrum antibiotics with vancomycin and Zosyn. 2000 cc/day fluid restrictions. 12/26 Afebrile overnight, leukocytosis resolved. Renal function improved, replaced potassium. Increased Lasix from 20 mg to 40 mg IV BID, continue Vancomycin IV, started Ceftriaxone and discontinued Zosyn. MRSA nasal PCR positive. LFT's i mproving. Discontinued Toradol and Lisinopril for MAKENNA. 12/27 Afebrile overnight, renal function stable. The patient is diuresing but still markedly edematous. Transition to Lasix infusion, transfer to PCU for closer monitoring, court recording monitor while diuresing with IV Lasix. Check urine protein creatinine ratio, mildly elevated not consistent with nephrotic syndrome. Transthoracic echocardiogram result pending. Continues on vancomycin and ceftriaxone. Preliminary blood culture results showing no growth to date. LFTs improving. Hepatitis C antibody nonreactive, hepatitis B surface antigen negative. 12/28 Tachycardia overnight, low normal blood pressures, afebrile. Diuresing well, e lectrolytes and renal function stable, continues on Lasix infusion. Reduce Toprol from 50 mg twice daily to 25 mg twice daily for a low normal blood pressure, continue lisinopril 2.5 mg daily. Echocardiogram results show reduced LV ejection fraction of 15 to 20%. EKG did not show any acute ischemic changes, check troponin level, mildly elevated 0.03, repeat 0.03. Discussed with cardiology, Dr. De La Torre, he did not feel there was a need for urgent ischemic work-up for this patient. We will continue with diuresis until volume status has improved and focus on titrating goal-directed medical therapy to include beta-luiz, ATIF inhibitor, possible mineralocorticoid receptor antagonist. Started cefazolin for cellulitis, discontinued ceftriaxone. 12/29 Some improvement in volume status but progress has been slow. Renal function and electrolytes stable, increased Lasix infusion to 10 mg/h, change fluid restriction to 2 L/day. 12/30 Electrolytes and renal function stable. Unfortunately the patient has not keeping accurate urine output and refused a Becerra catheter however overall diur esis has improved and the patient's daily weights are decreasing. Will increase Lasix infusion to 12 mg/h and continue to monitor labs closely. 12/31 Constitutional Vitals: Vital Signs Temp Pulse Resp BP Pulse Ox O2 Del Method O2 Flow Rate 97.3 F 95 H 18 118/79 97 2 12/30/21 12:00 12/30/21 08:16 12/30/21 12:00 12/30/21 12:00 12/30/21 12:00 12/30/21 12:00 12/30/21 04:06 Period Temp Pulse Resp BP Sys/Triplett Pulse Ox O2 Del Method O2 Flow Rate Last 24 Hr 96.4 F-98.1 F 95-108 16-24 111-152/74-125 91-100 Nasal Cannula-Room Air 2-2 Intake and Output 12/30/21 12/30/21 12/30/21 05:59 13:59 21:59 Intake Total 520 668 Output Total 2125 1350 Balance -1605 682 Intake & Output: Intake & Output 12/30/21 12/30/21 12/30/21 05:59 13:59 21:59 Intake Total 520 668 Output Total 2125 1350 Balance -1605 -222 Intake: IV 248 Lasix 250 mg In Sodium Chloride 248 0.9% 225 ml @ 10 MG/HR 10 mls/ hr IV Q24H [facility] Rx#:[id number] Oral 520 360 GI Tube Flush 60 Output: Void Amount 6912 1350 Other: Meal Breakfast Percent of Meal Consumed 100% Feeding Ability Independent Urine Appearance Clear Clear Urine Color Pale Yellow Exam: General: Alert, Awake, No acute Distress Eyes/N/T: EOMI, Head/Neck: neck supple, CV: RRR, No murmurs, Pulm: Clear b/l, no wheezing/rhonchi/rales Abd: distended, soft, no guarding, mild tenderness over cellulitis on lower abdomen., +BS x4 : Improved scrotal and penis edema Ext: no clubbing/cyanosis, b/l LE edema improving Neuro: Alert, no focal deficits, moves all extremities, Skin: Improved warmth, redness, tenderness over lower abdomen, scrotum, groin, and bilateral lower extremities. OBJ DATA Labs CBC & Chem 7: 12/29/21 04:57 12/30/21 04:52 Labs: Abnormal Lab Results 12/30/21 12/29/21 12/29/21 04:52 17:00 04:57 RBC Hgb Hct RDW Lymph # (Auto) Chloride 95 L Carbon Dioxide BUN 23 H Glucose 114 H Uric Acid 8.5 H Magnesium 1.5 L Total Bilirubin 1.3 H 1.1 H Direct Bilirubin 0.6 H 0.5 H GGT 130 H 123 H AST 45 H 46 H Alkaline Phosphatase 118 H Lactate Dehydrogenase 358 H 351 H Troponin T Albumin 3.1 L 3.0 L 3.1 L Albumin/Globulin Ratio Ur Random Creatinine U [place] Prot/Creat Ratio 12/29/21 12/28/21 12/28/21 04:57 17:38 04:57 RBC 4.24 L Hgb 11.8 L Hct 37.2 L RDW 17.1 H Lymph # (Auto) 1.44 L Chloride Carbon Dioxide 31 H BUN 22 H 22 H Glucose 107 H 114 H Uric Acid Magnesium Total Bilirubin Direct Bilirubin 0.5 H GGT 130 H AST 49 H Alkaline Phosphatase 130 H Lactate Dehydrogenase 385 H Troponin T Albumin 3.1 L 3.0 L Albumin/Globulin Ratio 0.9 L Ur Random Creatinine U [place] Prot/Creat Ratio 12/28/21 12/27/21 12/27/21 04:57 19:32 17:10 RBC 4.54 L Hgb 12.6 L Hct RDW 17.1 H Lymph # (Auto) Chloride Carbon Dioxide BUN Glucose Uric Acid Magnesium Total Bilirubin Direct Bilirubin GGT AST Alkaline Phosphatase Lactate Dehydrogenase Troponin T 0.03 H Albumin Albumin/Globulin Ratio Ur Random Creatinine 25.7 L U [place] Prot/Creat Ratio 0.23 H 12/27/21 12/27/21 17:10 13:27 RBC Hgb Hct RDW Lymph # (Auto) Chloride Carbon Dioxide BUN 26 H Glucose 114 H Uric Acid Magnesium Total Bilirubin Direct Bilirubin GGT AST Alkaline Phosphatase Lactate Dehydrogenase Troponin T 0.03 H Albumin 2.9 L Albumin/Globulin Ratio Ur Random Creatinine U [place] Prot/Creat Ratio Meds: Medications Acetaminophen (Acetaminophen 325 Mg Tablet) 650 mg PO Q6HP PRN; Protocol PRN Reason: Per Pain Protocol/Fever > 101 Albuterol/Ipratropium (Ipratropium/Albuterol 3 Ml Ampul.Neb) 3 ml NEB Q4HRT PRN PRN Reason: Wheezing Cefazolin Sodium (Cefazolin 1 Gm Vial) 2 gm IV Q8H [facility] Last Admin: 12/30/21 05:38 Dose: 2 gm Docusate Sodium (Docusate Sodium 100 Mg Capsule) 100 mg PO BID [facility] Last Admin: 12/30/21 10:48 Dose: Not Given Heparin Sodium (Porcine) (Heparin 5,000 Unit/Ml Vial) 5,000 unit SQ Q12 [facility] Last Admin: 12/30/21 09:32 Dose: 5,000 unit Hydromorphone HCl (Hydromorphone 0.5 Mg/0.5 Ml Syringe) 0.5 mg IV Q4HP PRN; Protocol PRN Reason: Per Pain Protocol Furosemide 250 mg/ Sodium (Chloride) 250 mls @ 12 mls/hr IV Q20H [facility] Last Admin: 12/30/21 11:42 Dose: 12 mg/hr, 12 mls/hr Lisinopril (Lisinopril 2.5 Mg Tablet) 2.5 mg PO DAILY [facility] Last Admin: 12/30/21 09:32 Dose: 2.5 mg Metoprolol Succinate (Metoprolol Succinate 25 Mg Tab.Xl.24h) 25 mg PO BID [facility] Last Admin: 12/30/21 09:31 Dose: 25 mg Mupirocin (Mupirocin Oint 2% 22gm) 1 dose NARES BID [facility] Last Admin: 12/30/21 09:31 Dose: 1 dose Ondansetron HCl (Ondansetron 4 Mg/2 Ml Vial) 4 mg IV Q6HP PRN PRN Reason: Nausea And Vomiting Oxycodone HCl (Oxycodone Hcl 5 Mg Tablet) 5 mg PO Q4HP PRN; Protocol PRN Reason: Per Pain Protocol Last Admin: 12/28/21 21:52 Dose: 5 mg Potassium Chloride (Potassium Chloride 20 Meq Tablet) 40 meq PO QAMCC [facility] Last Admin: 12/30/21 09:31 Dose: 40 meq Senna (Sennosides 1 Tablet) 2 tab PO HS [facility] Last Admin: 12/29/21 20:09 Dose: 2 tab Sodium Chloride (0.9 % Sodium Chloride 10 Ml Syringe) 10 ml IV Q8 [facility] Last Admin: 12/30/21 05:38 Dose: 10 ml Thiamine HCl (Thiamine 100 Mg Tablet) 100 mg PO DAILY [facility] Last Admin: 12/30/21 09:31 Dose: 100 mg A/P Narrative A/P Narrative: A: #Acute on chronic systolic(15-20%)/diastolic CHF w/severe volume overload: #Sepsis: 2/2 scrotal cellulitis, resolved #MAKENNA: 2/2 sepsis, resolved #Elevated LFTs: 2/2 congestive hepatopathy, improving with diuresis #Methamphetamine use disorder: #Obesity:BMI 40 Plan: -Cefazolin for cellulitis, complete 7-10 days of IV or oral antibiotic treatment -Continue Lasix infusion, closely monitor electrolytes and renal function, I&O, daily weights. -Toprol 25 mg twice daily, lisinopril 2.5 mg daily for HFrEF, titrate as tolerated -Regular low-sodium diet and fluid restriction -Referral to Dr. Thomas for substance use disorder -Disposition: Home when stable on BB/ACEI, possibly mineralocorticoid receptor antagonist. Cardiology referral -ppx: Heparin SQ CODE STATUS: Full . Time Spent With Patient Time: Total time spent is greater than 50% in coordination of care (as documented) at patient's floor/unit and/or counseling patient:
[2021-12-30] MEDS: SENNOSIDES 1 TABLET PO SCH (21:28)
[2021-12-31] MEDS: ceFAZolin 1 GM VIAL IV SCH ×3 (05:51→21:44)
[2021-12-31] MEDS: 0.9 % SODIUM CHLORIDE 10 ML SYRINGE IV SCH ×3 (05:51→21:44)
[2021-12-31 06:51] LABS: ALT/SGPT 14 U/L (<40); AST/SGOT 43 U/L (<40); Albumin/Globulin Ratio 0.9 (1.0-2.3); Alkaline Phosphatase 128 U/L (39-117); Bilirubin,Direct 0.6 mg/dL (<0.3); Bilirubin,Total 1.3 mg/dL (0.1-1.0); Blood Urea Nitrogen 17 mg/dL (6-20); Calcium 9.4 mg/dL (8.6-10.4); Carbon Dioxide 32 mmol/L (22-30); Chloride 93 mmol/L (96-108); Globulin 3.4 gm/dL (2.2-3.7); Glomerular Filtration Rate 83; Glucose 118 mg/dL (70-105); Lactate Dehydrogenase 328 U/L (135-225); Phosphorous 3.6 mg/dL (2.5-4.5); Triglycerides 86 mg/dL (<150)
--- NOTE | 2021-12-31 07:27 | Internal Med Progress Note ---
SUBJECTIVE Subjective Patient information: Note initiated : 12/31/21 at 7:24 am Service Date, if different from initiated Date: [] Patient: Wilner Romero 41 y/o M admitted on 12/24/21 for cellulitis not going away. Chief Complaint: [] Interval history: Mr. Romero is a 41 year old M history of meth use, CHF, presenting with abdominal and scrotal swelling and pain. He presented to our ED 2 weeks ago for similar complaints, was being diagnosed with bilateral epididymis, and was being discharged home with oral doxycycline. He stated that he finished the antibiotics but the swelling and pain persist and get worse so he returned to our ED today for reevaluation and treatments. He is committing of lower abdominal and scrotal swelling and pain, the nature of the pain is " distention", mild to moderate. He denies any fever, chills, or diaphoresis. He is also commenting of bilateral leg swellings. He is adamant about his methamphetamine use and he did smoke it earlier this morning. Denies any shortness of breath. Denies any chest pain or palpitations. Vital signs significant for tachycardia heart rate in the 1 teens beats per minute, tachypnea rate of breathing up to the mid 30s breaths per minute. Labs significant for leukocytosis with WBC 14.3. Lactic acid 3.0. Potasssium 5.4. PCO creatinine 1.6. Procalcitonin 0.46. UA suggesting the presence of urinary tract infections. Urine drug screen positive for methamphetamine. CT abdomen pelvis showing severe and extensive subcutaneous edema with marked scrotal edema and enlargement. No soft tissue gas or focal abscess. No evidence for necrotizing fasciitis. Scrotal ultrasound showing normal testicles. Epididymis is suboptimally evaluated bilaterally but there is no definite abnormalities. Severe scrotal edema or cellulitis and marked scrotal thickening. 12/25: Afebrile overnight. Blood and urine culture no growth today. Patient is coming of mild to moderate lower abdominal pain as well as scrotal swelling and pain. Denies any fever chills or diaphoresis. He just being tired. Continue diuretics with IV Lasix. Continue broad-spectrum antibiotics with vancomycin and Zosyn. 2000 cc/day fluid restrictions. 12/26 Afebrile overnight, leukocytosis resolved. Renal function improved, replaced potassium. Increased Lasix from 20 mg to 40 mg IV BID, continue Vancomycin IV, started Ceftriaxone and discontinued Zosyn. MRSA nasal PCR positive. LFT's i mproving. Discontinued Toradol and Lisinopril for MAKENNA. 12/27 Afebrile overnight, renal function stable. The patient is diuresing but still markedly edematous. Transition to Lasix infusion, transfer to PCU for closer monitoring, conveyor monitor while diuresing with IV Lasix. Check urine protein creatinine ratio, mildly elevated not consistent with nephrotic syndrome. Transthoracic echocardiogram result pending. Continues on vancomycin and ceftriaxone. Preliminary blood culture results showing no growth to date. LFTs improving. Hepatitis C antibody nonreactive, hepatitis B surface antigen negative. 12/28 Tachycardia overnight, low normal blood pressures, afebrile. Diuresing well, e lectrolytes and renal function stable, continues on Lasix infusion. Reduce Toprol from 50 mg twice daily to 25 mg twice daily for a low normal blood pressure, continue lisinopril 2.5 mg daily. Echocardiogram results show reduced LV ejection fraction of 15 to 20%. EKG did not show any acute ischemic changes, check troponin level, mildly elevated 0.03, repeat 0.03. Discussed with cardiology, Dr. De La Torre, he did not feel there was a need for urgent ischemic work-up for this patient. We will continue with diuresis until volume status has improved and focus on titrating goal-directed medical therapy to include beta-luiz, ATIF inhibitor, possible mineralocorticoid receptor antagonist. Started cefazolin for cellulitis, discontinued ceftriaxone. 12/29 Some improvement in volume status but progress has been slow. Renal function and electrolytes stable, increased Lasix infusion to 10 mg/h, change fluid restriction to 2 L/day. 12/30 Electrolytes and renal function stable. Unfortunately the patient has not keeping accurate urine output and refused a Becerra catheter however overall diur esis has improved and the patient's daily weights are decreasing. Will increase Lasix infusion to 12 mg/h and continue to monitor labs closely. 12/31 Patient sleepy this morning's resident several times. Good urine output. Still edematous. On room air. For contraction alkalosis. Bicarb is starting to creep up. BMP has shown significant improvement. Review of Systems: denies headache/fever/chills/nausea/vomiting/chest or abdominal pain/cough/dyspnea/diarrhea. Otherwise see above. Constitutional Vitals: Vital Signs Temp Pulse Resp BP Pulse Ox O2 Del Method O2 Flow Rate 97.6 F 107 H 16 118/86 95 2 12/31/21 04:41 12/30/21 14:08 12/31/21 04:41 12/31/21 04:41 12/31/21 04:41 12/31/21 02:06 12/30/21 04:06 Period Temp Pulse Resp BP Sys/Triplett Pulse Ox O2 Del Method O2 Flow Rate Last 24 Hr 97.0 F-97.6 F 95-107 - 101-130/74-98 90-97 Room Air-Room Air Intake and Output 12/30/21 12/31/21 12/31/21 21:59 05:59 13:59 Intake Total 480 360 Output Total 3725 2600 550 Balance -3245 -2240 -550 Weight 125.736 kg Intake & Output: Intake & Output 12/30/21 12/31/21 12/31/21 21:59 05:59 13:59 Intake Total 480 360 Output Total 3725 2600 550 Balance -3245 -2240 -550 Weight 125.736 kg Intake: Oral 480 360 Output: Void Amount 3725 2600 550 Other: Meal Dinner Percent of Meal Consumed 100% Feeding Ability Independent Urine Appearance Clear Clear Clear Urine Color Pale Pale Pale Urine Odor Strong Exam: General: Alert, Awake, No acute Distress Eyes/N/T: EOMI, Head/Neck: neck supple, CV: RRR, No murmurs, Pulm: Clear b/l, no wheezing/rhonchi/rales Abd: distended, soft, no guarding, mild tenderness over cellulitis on lower abdomen., +BS x4 : Improved scrotal and penis edema Ext: no clubbing/cyanosis, b/l LE edema 2+ Neuro: Alert, no focal deficits, moves all extremities, Skin: Improved warmth, redness, tenderness over lower abdomen, scrotum, groin, and bilateral lower extremities. OBJ DATA Labs CBC & Chem 7: 12/29/21 04:57 12/31/21 04:52 Labs: Abnormal Lab Results 12/31/21 12/30/21 12/29/21 04:52 04:52 17:00 RBC Hgb Hct RDW Lymph # (Auto) Chloride 93 L 95 L Carbon Dioxide 32 H BUN 23 H Glucose 118 H 114 H Uric Acid 9.0 H 8.5 H Magnesium Total Bilirubin 1.3 H 1.3 H Direct Bilirubin 0.6 H 0.6 H GGT 141 H 130 H AST 43 H 45 H Alkaline Phosphatase 128 H 118 H Lactate Dehydrogenase 328 H 358 H Albumin 3.0 L 3.1 L 3.0 L Albumin/Globulin Ratio 0.9 L 12/29/21 12/29/21 12/28/21 04:57 04:57 17:38 RBC 4.24 L Hgb 11.8 L Hct 37.2 L RDW 17.1 H Lymph # (Auto) 1.44 L Chloride Carbon Dioxide 31 H BUN 22 H Glucose 107 H Uric Acid Magnesium 1.5 L Total Bilirubin 1.1 H Direct Bilirubin 0.5 H GGT 123 H AST 46 H Alkaline Phosphatase Lactate Dehydrogenase 351 H Albumin 3.1 L 3.1 L Albumin/Globulin Ratio Meds: Medications Acetaminophen (Acetaminophen 325 Mg Tablet) 650 mg PO Q6HP PRN; Protocol PRN Reason: Per Pain Protocol/Fever > 101 Albuterol/Ipratropium (Ipratropium/Albuterol 3 Ml Ampul.Neb) 3 ml NEB Q4HRT PRN PRN Reason: Wheezing Cefazolin Sodium (Cefazolin 1 Gm Vial) 2 gm IV Q8H [facility] Last Admin: 12/31/21 05:51 Dose: 2 gm Docusate Sodium (Docusate Sodium 100 Mg Capsule) 100 mg PO BID [facility] Last Admin: 12/30/21 21:28 Dose: Not Given Heparin Sodium (Porcine) (Heparin 5,000 Unit/Ml Vial) 5,000 unit SQ Q12 [facility] Last Admin: 12/30/21 21:28 Dose: 5,000 unit Hydromorphone HCl (Hydromorphone 0.5 Mg/0.5 Ml Syringe) 0.5 mg IV Q4HP PRN; Protocol PRN Reason: Per Pain Protocol Furosemide 250 mg/ Sodium (Chloride) 250 mls @ 12 mls/hr IV Q20H [facility] Last Admin: 12/30/21 11:42 Dose: 12 mg/hr, 12 mls/hr Lisinopril (Lisinopril 2.5 Mg Tablet) 2.5 mg PO DAILY [facility] Last Admin: 12/30/21 09:32 Dose: 2.5 mg Metoprolol Succinate (Metoprolol Succinate 25 Mg Tab.Xl.24h) 25 mg PO BID [facility] Last Admin: 12/30/21 21:28 Dose: 25 mg Mupirocin (Mupirocin Oint 2% 22gm) 1 dose NARES BID [facility] Last Admin: 12/30/21 21:28 Dose: 1 dose Ondansetron HCl (Ondansetron 4 Mg/2 Ml Vial) 4 mg IV Q6HP PRN PRN Reason: Nausea And Vomiting Oxycodone HCl (Oxycodone Hcl 5 Mg Tablet) 5 mg PO Q4HP PRN; Protocol PRN Reason: Per Pain Protocol Last Admin: 12/28/21 21:52 Dose: 5 mg Potassium Chloride (Potassium Chloride 20 Meq Tablet) 40 meq PO QAMCC [facility] Last Admin: 12/30/21 09:31 Dose: 40 meq Senna (Sennosides 1 Tablet) 2 tab PO HS [facility] Last Admin: 12/30/21 21:28 Dose: Not Given Sodium Chloride (0.9 % Sodium Chloride 10 Ml Syringe) 10 ml IV Q8 [facility] Last Admin: 12/31/21 05:51 Dose: 10 ml Thiamine HCl (Thiamine 100 Mg Tablet) 100 mg PO DAILY [facility] Last Admin: 12/30/21 09:31 Dose: 100 mg A/P Narrative A/P Narrative: A: #Acute on chronic systolic(15-20%)/diastolic CHF w/severe volume overload: -good UOP, on room air #Sepsis: 2/2 scrotal cellulitis, resolved #MAKENNA: 2/2 sepsis, resolved #Elevated LFTs: 2/2 congestive hepatopathy, improved with diuresis #Methamphetamine use disorder: #Obesity:BMI 40 Plan: -Cefazolin for cellulitis, complete 7-10 days of IV or oral antibiotic treatment -hold Lasix for nowinfusion, closely monitor electrolytes and renal function, I&O, daily weights. -Toprol 25 mg twice daily, lisinopril 2.5 mg daily for HFrEF, titrate as tolerated -Regular low-sodium diet and fluid restriction -Referral to Dr. Thomas for substance use disorder -Disposition: Home when stable on BB/ACEI, possibly mineralocorticoid receptor antagonist. Cardiology referral -ppx: Heparin SQ CODE STATUS: Full . Time Spent With Patient Time: Total time spent is greater than 50% in coordination of care (as documented) at patient's floor/unit and/or counseling patient: Total time spent with greater than 50% in coordination of care (as documented) at patient's floor/unit and/or counseling patient:: 25 - 35 minutes
[2021-12-31] MEDS: HEPARIN 5,000 UNIT/ML VIAL SQ SCH ×2 (08:04→21:03)
[2021-12-31] MEDS: MUPIROCIN OINT 2% 22GM NARES SCH ×2 (08:04→21:02)
[2021-12-31] MEDS: POTASSIUM CHLORIDE 20 MEQ TABLET PO SCH (08:04)
[2021-12-31] MEDS: THIAMINE 100 MG TABLET PO SCH (08:04)
[2021-12-31] MEDS: METOPROLOL SUCCINATE 25 MG TAB.XL.24H PO SCH ×2 (08:04→21:02)
[2021-12-31] MEDS: LISINOPRIL 2.5 MG TABLET PO SCH (08:04)
[2021-12-31] MEDS: DOCUSATE SODIUM 100 MG CAPSULE PO SCH ×2 (08:04→21:02)
[2021-12-31] MEDS: FUROSEMIDE 250 MG in 0.9 % SODIUM CHLORIDE 225 ML IV SCH ×2 (08:05→14:20)
[2021-12-31] MEDS ORDERED: ALBUMIN HUMAN 12.5 GM/50 ML BAG IV ONE (09:26)
--- NOTE | 2021-12-31 09:59 | XRay Report ---
CLINICAL INFORMATION: Follow-up CHF COMPARISON: 12/06/2021 TECHNIQUE: Portable FINDINGS: Moderate cardiomegaly show slight decrease. Mediastinum is unremarkable. Upper lobe pulmonary vessels show slight cephalization but there is no david vascular congestion. No interstitial edema. Lungs are clear. Small left pleural effusion noted. IMPRESSION: Moderate cardiomegaly. No evidence of acute CHF Interpreted and Authenticated by: Tim Castrejon 12/31/21
--- NOTE | 2021-12-31 11:04 | Discharge Summary ---
Discharge Provider Provider IMPORTANT FOLLOW-UP INFORMATION FOR PCP: Patient information: Note initiated : 12/31/21 at 11:01 am Service Date, if different from initiated Date: [] Patient: Wilner Romero 41 y/o M admitted on 12/24/21 for cellulitis not going away. Chief Complaint: [] Date of admission: 12/24/21 12:32 Discharge date: 01/02/22 Primary care physician: PCP No Consults: 12/24/21 Consult to Physician [CONS] Stat Comment: Consulting Provider: Placido Perales Reason For Exam: Physician to Consult 12/27/21 13:31 Consult to Physician [CONS] Routine Comment: Consulting Provider: Quynh [facility] Reason For Exam: Physician to Consult COURSE Hospital Course Hospital course: Mr. Romero is a 41 year old M history of meth use, CHF, presenting with abdominal and scrotal swelling and pain. He presented to our ED 2 weeks ago for similar complaints, was being diagnosed with bilateral epididymis, and was being discharged home with oral doxycycline. He stated that he finished the antibiotics but the swelling and pain persist and get worse so he returned to our ED today for reevaluation and treatments. He is committing of lower abdominal and scrotal swelling and pain, the nature of the pain is " distention", mild to moderate. He denies any fever, chills, or diaphoresis. He is also commenting of bilateral leg swellings. He is adamant about his methamphetamine use and he did smoke it earlier this morning. Denies any shortness of breath. Denies any chest pain or palpitations. Vital signs significant for tachycardia heart rate in the 1 teens beats per minute, tachypnea rate of breathing up to the mid 30s breaths per minute. Labs significant for leukocytosis with WBC 14.3. Lactic acid 3.0. Potasssium 5.4. PCO creatinine 1.6. Procalcitonin 0.46. UA suggesting the presence of urinary tract infections. Urine drug screen positive for methamphetamine. CT abdomen pelvis showing severe and extensive subcutaneous edema with marked scrotal edema and enlargement. No soft tissue gas or focal abscess. No evidence for necrotizing fasciitis. Scrotal ultrasound showing normal testicles. Epididymis is suboptimally evaluated bilaterally but there is no definite abnormalities. Severe scrotal edema or cellulitis and marked scrotal thickening. 12/25: Afebrile overnight. Blood and urine culture no growth today. Patient is coming of mild to moderate lower abdominal pain as well as scrotal swelling and pain. Denies any fever chills or diaphoresis. He just being tired. Continue diuretics with IV Lasix. Continue broad-spectrum antibiotics with vancomycin and Zosyn. 2000 cc/day fluid restrictions. 12/26 Afebrile overnight, leukocytosis resolved. Renal function improved, replaced potassium. Increased Lasix from 20 mg to 40 mg IV BID, continue Vancomycin IV, started Ceftriaxone and discontinued Zosyn. MRSA nasal PCR positive. LFT's improving. Discontinued Toradol and Lisinopril for MAKENNA. 12/27 Afebrile overnight, renal function stable. The patient is diuresing but still markedly edematous. Transition to Lasix infusion, transfer to PCU for closer monitoring, playground monitor while diuresing with IV Lasix. Check urine protein creatinine ratio, mildly elevated not consistent with nephrotic syndrome. Transthoracic echocardiogram result pending. Continues on vancomycin and ceftriaxone. Preliminary blood culture results showing no growth to date. LFTs improving. Hepatitis C antibody nonreactive, hepatitis B surface antigen negative. 12/28 Tachycardia overnight, low normal blood pressures, afebrile. Diuresing well, electrolytes and renal function stable, continues on Lasix infusion. Reduce Toprol from 50 mg twice daily to 25 mg twice daily for a low normal blood pressure, continue lisinopril 2.5 mg daily. Echocardiogram results show reduced LV ejection fraction of 15 to 20%. EKG did not show any acute ischemic changes, check troponin level, mildly elevated 0.03, repeat 0.03. Discussed with cardiology, Dr. De La Torre, he did not feel there was a need for urgent ischemic work-up for this patient. We will continue with diuresis until volume status has improved and focus on titrating goal-directed medical therapy to include beta-luiz, ATIF inhibitor, possible mineralocorticoid receptor antagonist. Started cefazolin for cellulitis, discontinued ceftriaxone. 12/29 Some improvement in volume status but progress has been slow. Renal function and electrolytes stable, increased Lasix infusion to 10 mg/h, change fluid restriction to 2 L/day. 12/30 Electrolytes and renal function stable. Unfortunately the patient has not keeping accurate urine output and refused a Becerra catheter however overall diuresis has improved and the patient's daily weights are decreasing. Will increase Lasix infusion to 12 mg/h and continue to monitor labs closely. 12/31 Patient sleepy this morning's resident several times. Good urine output. Still edematous. On room air. For contraction alkalosis. Bicarb is starting to creep up. BMP has shown significant improvement. 01/01 Patient feeling better, breathing better. Still has edema but much improved. Scrotal swelling still present but improving. 01/02 Patient continues to feel better. Swelling present but continues to improve. Patient is states he is at his normal weight prior to the recent worsening. He said he would be more compliant with taking his cardiac and diuretic medications daily. A: #Acute on chronic systolic(15-20%)/diastolic CHF w/severe volume overload: -good UOP, on room air #Sepsis: 2/2 scrotal cellulitis, resolved #MAKENNA: 2/2 sepsis, resolved #Elevated LFTs: 2/2 congestive hepatopathy, improved with diuresis #Methamphetamine use disorder: #Obesity:BMI 40 Plan: -Referral to Dr. Thomas for substance use disorder -Cardiology f/u -Referral to pulmonology for likely CHRISTIAN and sleep study Discharge diagnosis: Acute on chronic systolic diastolic heart failure sepsis from scrotal cellu Secondary discharge diagnosis: Sepsis from scrotal cellulitis MAKENNA transaminitis methamphetamine use obesity Time Spent with Patient Time attestation: Total time spent providing and/or coordinating discharge services: Time spent: Greater than 30 minutes EXAM Constitutional Vitals: Temp Pulse Resp BP Pulse Ox O2 Del Method O2 Flow Rate 97.2 F 107 H 16 119/80 95 2 12/31/21 08:19 12/30/21 14:08 12/31/21 04:41 12/31/21 08:19 12/31/21 07:29 12/31/21 02:06 12/30/21 04:06 Discharge Data Data Completed and Pending Labs on day of discharge: Labs from last 24 hours 12/31/21 12/31/21 07:37 04:52 Sodium 138 Potassium 3.7 Chloride 93 L Carbon Dioxide 32 H Anion Gap 13.0 BUN 17 Creatinine 1.1 GFR Calculation 83 Glucose 118 H Uric Acid 9.0 H Calcium 9.4 Phosphorus 3.6 Magnesium 1.7 Total Bilirubin 1.3 H Direct Bilirubin 0.6 H GGT 141 H AST 43 H ALT 14 Alkaline Phosphatase 128 H Lactate Dehydrogenase 328 H NT-Pro-B Natriuret Pep 1460.0 H Total Protein 6.4 Albumin 3.0 L Globulin 3.4 Albumin/Globulin Ratio 0.9 L Triglycerides 86 Discharge Plan Patient/Caregiver Discharge Instructions Activity: increase activity as tolerated Diet: Cardiac Activity Restrictions/Additional Instructions: Follow-up with PCP in 3 to 7 days. Referral to see cardiology in 3 to 14 days for CHF with reduced ejection fraction. Referral to see pulmonology in 1 to 2 weeks for likely sleep study for suspected CHRISTIAN Prescriptions: Continued spironolactone 25 mg tablet 1 tab PO QAM potassium chloride 10 mEq capsule, extended release 1 cap PO QAM lisinopril 2.5 mg tablet 1 tab PO BID torsemide 20 mg tablet 2 tab PO QAM metoprolol succinate 50 mg tablet extended release 24 hr 1 tab PO BID doxycycline monohydrate 100 mg capsule 100 mg PO BID Qty: 6 0RF Discontinued furosemide 40 mg tablet 40 mg PO QDAY Qty: 30 0RF furosemide 20 mg PO DAILY SMZ-TMP DS 160 - 800 mg PO BID Follow Up Plan Follow up with: Ivett Thomas DO [Physician] - (substance use disorder (methamphetamines)) Patient Disposition: Home, Self-Care Prognosis: Undetermined Overall status at discharge: patient is progressing back to baseline Discharge Orders: Discharge Order (Routine); Ordered 01/02/22 Ordered By: Tony Frye
[2021-12-31] MEDS ORDERED: FUROSEMIDE 250 MG in 0.9 % SODIUM CHLORIDE 225 ML IV SCH (12:00)
[2021-12-31] MEDS: SENNOSIDES 1 TABLET PO SCH (21:03)
[2022-01-01] MEDS: ceFAZolin 1 GM VIAL IV SCH ×3 (05:43→21:12)
[2022-01-01] MEDS: 0.9 % SODIUM CHLORIDE 10 ML SYRINGE IV SCH ×3 (05:44→21:13)
--- NOTE | 2022-01-01 07:28 | Internal Med Progress Note ---
SUBJECTIVE Subjective Patient information: Note initiated : 01/01/22 at 7:24 am Service Date, if different from initiated Date: [] Patient: Wilner Romero 41 y/o M admitted on 12/24/21 for cellulitis not going away. Chief Complaint: [] Interval history: Mr. Romero is a 41 year old M history of meth use, CHF, presenting with abdominal and scrotal swelling and pain. He presented to our ED 2 weeks ago for similar complaints, was being diagnosed with bilateral epididymis, and was being discharged home with oral doxycycline. He stated that he finished the antibiotics but the swelling and pain persist and get worse so he returned to our ED today for reevaluation and treatments. He is committing of lower abdominal and scrotal swelling and pain, the nature of the pain is " distention", mild to moderate. He denies any fever, chills, or diaphoresis. He is also commenting of bilateral leg swellings. He is adamant about his methamphetamine use and he did smoke it earlier this morning. Denies any shortness of breath. Denies any chest pain or palpitations. Vital signs significant for tachycardia heart rate in the 1 teens beats per minute, tachypnea rate of breathing up to the mid 30s breaths per minute. Labs significant for leukocytosis with WBC 14.3. Lactic acid 3.0. Potasssium 5.4. PCO creatinine 1.6. Procalcitonin 0.46. UA suggesting the presence of urinary tract infections. Urine drug screen positive for methamphetamine. CT abdomen pelvis showing severe and extensive subcutaneous edema with marked scrotal edema and enlargement. No soft tissue gas or focal abscess. No evidence for necrotizing fasciitis. Scrotal ultrasound showing normal testicles. Epididymis is suboptimally evaluated bilaterally but there is no definite abnormalities. Severe scrotal edema or cellulitis and marked scrotal thickening. 12/25: Afebrile overnight. Blood and urine culture no growth today. Patient is coming of mild to moderate lower abdominal pain as well as scrotal swelling and pain. Denies any fever chills or diaphoresis. He just being tired. Continue diuretics with IV Lasix. Continue broad-spectrum antibiotics with vancomycin and Zosyn. 2000 cc/day fluid restrictions. 12/26 Afebrile overnight, leukocytosis resolved. Renal function improved, replaced potassium. Increased Lasix from 20 mg to 40 mg IV BID, continue Vancomycin IV, started Ceftriaxone and discontinued Zosyn. MRSA nasal PCR positive. LFT's i mproving. Discontinued Toradol and Lisinopril for MAKENNA. 12/27 Afebrile overnight, renal function stable. The patient is diuresing but still markedly edematous. Transition to Lasix infusion, transfer to PCU for closer monitoring, rn cardiac while diuresing with IV Lasix. Check urine protein creatinine ratio, mildly elevated not consistent with nephrotic syndrome. Transthoracic echocardiogram result pending. Continues on vancomycin and ceftriaxone. Preliminary blood culture results showing no growth to date. LFTs improving. Hepatitis C antibody nonreactive, hepatitis B surface antigen negative. 12/28 Tachycardia overnight, low normal blood pressures, afebrile. Diuresing well, e lectrolytes and renal function stable, continues on Lasix infusion. Reduce Toprol from 50 mg twice daily to 25 mg twice daily for a low normal blood pressure, continue lisinopril 2.5 mg daily. Echocardiogram results show reduced LV ejection fraction of 15 to 20%. EKG did not show any acute ischemic changes, check troponin level, mildly elevated 0.03, repeat 0.03. Discussed with cardiology, Dr. De La Torre, he did not feel there was a need for urgent ischemic work-up for this patient. We will continue with diuresis until volume status has improved and focus on titrating goal-directed medical therapy to include beta-luiz, ATIF inhibitor, possible mineralocorticoid receptor antagonist. Started cefazolin for cellulitis, discontinued ceftriaxone. 12/29 Some improvement in volume status but progress has been slow. Renal function and electrolytes stable, increased Lasix infusion to 10 mg/h, change fluid restriction to 2 L/day. 12/30 Electrolytes and renal function stable. Unfortunately the patient has not keeping accurate urine output and refused a Becerra catheter however overall diur esis has improved and the patient's daily weights are decreasing. Will increase Lasix infusion to 12 mg/h and continue to monitor labs closely. 12/31 Patient sleepy this morning's resident several times. Good urine output. Still edematous. On room air. For contraction alkalosis. Bicarb is starting to creep up. BMP has shown significant improvement. 01/01 Patient feeling better, breathing better. Still has significant edema but much improved. Scrotal swelling still present but improving. Review of Systems: denies headache/fever/chills/nausea/vomiting/chest or abdominal pain/cough/dys pnea/diarrhea. Otherwise see above. Constitutional Vitals: Vital Signs Temp Pulse Resp BP Pulse Ox O2 Del Method O2 Flow Rate 97.6 F 95 H 16 110/75 80 L 0 01/01/22 02:45 01/01/22 02:45 01/01/22 02:45 01/01/22 02:45 01/01/22 05:58 01/01/22 05:58 01/01/22 05:58 Period Temp Pulse Resp BP Sys/Triplett Pulse Ox O2 Del Method O2 Flow Rate Last 24 Hr 97.2 F-98.2 F 95 16-24 100-137/68-120 80-97 Nasal Cannula-Room Air 0-1 Intake and Output 12/31/21 01/01/22 01/01/22 21:59 05:59 13:59 Intake Total 815 100 240 Output Total 3000 300 350 Balance -2185 -200 -110 Weight 118.388 kg Intake & Output: Intake & Output 12/31/21 01/01/22 01/01/22 21:59 05:59 13:59 Intake Total 815 100 240 Output Total 3000 300 350 Balance -2185 -200 -110 Weight 118.388 kg Intake: IV 135 Lasix 250 mg In Sodium Chloride 85 0.9% 225 ml @ 12 MG/HR 12 mls/ hr IV Q20H [facility] [place] Rx#:[id number] Oral 680 100 240 Output: Void Amount 3000 300 350 Other: Meal Dinner Percent of Meal Consumed 100% Feeding Ability Independent Urine Appearance Clear Clear Urine Color Yellow Yellow Urine Odor Normal Exam: General: Alert, Awake, No acute Distress Eyes/N/T: EOMI, Head/Neck: neck supple, CV: RRR, No murmurs, Pulm: mild base rales b/l, no wheezing Abd: distended, soft, no guarding, +BS x4 : Improving scrotal and penis edema Ext: no clubbing/cyanosis, b/l LE edema 2+ Neuro: Alert, no focal deficits, moves all extremities, Skin: Improved warmth/redness/tenderness over lower abdomen, scrotum, groin, and bilateral lower extremities. OBJ DATA Labs CBC & Chem 7: 12/29/21 04:57 01/01/22 04:51 Labs: Abnormal Lab Results 12/31/21 12/31/21 12/30/21 07:37 04:52 04:52 Chloride 93 L 95 L Carbon Dioxide 32 H BUN Glucose 118 H 114 H Uric Acid 9.0 H 8.5 H Total Bilirubin 1.3 H 1.3 H Direct Bilirubin 0.6 H 0.6 H GGT 141 H 130 H AST 43 H 45 H Alkaline Phosphatase 128 H 118 H Lactate Dehydrogenase 328 H 358 H NT-Pro-B Natriuret Pep 1460.0 H Albumin 3.0 L 3.1 L Albumin/Globulin Ratio 0.9 L 12/29/21 17:00 Chloride Carbon Dioxide BUN 23 H Glucose Uric Acid Total Bilirubin Direct Bilirubin GGT AST Alkaline Phosphatase Lactate Dehydrogenase NT-Pro-B Natriuret Pep Albumin 3.0 L Albumin/Globulin Ratio Meds: Medications Acetaminophen (Acetaminophen 325 Mg Tablet) 650 mg PO Q6HP PRN; Protocol PRN Reason: Per Pain Protocol/Fever > 101 Albuterol/Ipratropium (Ipratropium/Albuterol 3 Ml Ampul.Neb) 3 ml NEB Q4HRT PRN PRN Reason: Wheezing Cefazolin Sodium (Cefazolin 1 Gm Vial) 2 gm IV Q8H [facility] [place] Last Admin: 01/01/22 05:43 Dose: 2 gm Docusate Sodium (Docusate Sodium 100 Mg Capsule) 100 mg PO BID [facility] [place] Last Admin: 12/31/21 21:02 Dose: 100 mg Heparin Sodium (Porcine) (Heparin 5,000 Unit/Ml Vial) 5,000 unit SQ Q12 [facility] Last Admin: 12/31/21 21:03 Dose: 5,000 unit Hydromorphone HCl (Hydromorphone 0.5 Mg/0.5 Ml Syringe) 0.5 mg IV Q4HP PRN; Protocol PRN Reason: Per Pain Protocol Furosemide 250 mg/ Sodium (Chloride) 250 mls @ 12 mls/hr IV Q20H [facility] [place] Last Infusion: 12/31/21 18:07 Dose: 0 mg/hr, 0 mls/hr Lisinopril (Lisinopril 2.5 Mg Tablet) 2.5 mg PO DAILY [facility] [place] Last Admin: 12/31/21 08:04 Dose: 2.5 mg Metoprolol Succinate (Metoprolol Succinate 25 Mg Tab.Xl.24h) 25 mg PO BID [facility] [place] Last Admin: 12/31/21 21:02 Dose: 25 mg Mupirocin (Mupirocin Oint 2% 22gm) 1 dose NARES BID [facility] [place] Last Admin: 12/31/21 21:02 Dose: 1 dose Ondansetron HCl (Ondansetron 4 Mg/2 Ml Vial) 4 mg IV Q6HP PRN PRN Reason: Nausea And Vomiting Oxycodone HCl (Oxycodone Hcl 5 Mg Tablet) 5 mg PO Q4HP PRN; Protocol PRN Reason: Per Pain Protocol Last Admin: 12/28/21 21:52 Dose: 5 mg Potassium Chloride (Potassium Chloride 20 Meq Tablet) 40 meq PO QAMCC [facility] [place] Last Admin: 12/31/21 08:04 Dose: 40 meq Senna (Sennosides 1 Tablet) 2 tab PO HS [facility] [place] Last Admin: 12/31/21 21:03 Dose: 2 tab Sodium Chloride (0.9 % Sodium Chloride 10 Ml Syringe) 10 ml IV Q8 [facility] [place] Last Admin: 01/01/22 05:44 Dose: 10 ml Thiamine HCl (Thiamine 100 Mg Tablet) 100 mg PO DAILY [facility] [place] Last Admin: 12/31/21 08:04 Dose: 100 mg A/P Narrative A/P Narrative: A: #Acute on chronic systolic(15-20%)/diastolic( ) CHF w/severe volume overload: -good UOP, on room air during day -still edematous #Sepsis: 2/2 scrotal cellulitis, resolved #MAKENNA: 2/2 sepsis, resolved #Elevated LFTs: 2/2 congestive hepatopathy, improved with diuresis #Methamphetamine use disorder: #Obesity:BMI 40 #Likely CHRISTIAN: Plan: -Cefazolin for cellulitis, complete 7-10 days of IV or oral antibiotic treatment -hold Lasix infusion for now, bolus lasix w/diamox today, closely monitor electrolytes and renal function, I&O, daily weights. -Toprol 25 mg twice daily, lisinopril 2.5 mg daily for HFrEF, titrate as tolerated -Regular low-sodium diet and fluid restriction -Referral to Dr. Thomas for substance use disorder -Disposition: Home when stable on BB/ACEI, Cardiology referral -referral to pulm for sleep study -ppx: Heparin SQ CODE STATUS: Full . Time Spent With Patient Time: Total time spent is greater than 50% in coordination of care (as documented) at patient's floor/unit and/or counseling patient: Total time spent with greater than 50% in coordination of care (as documented) at patient's floor/unit and/or counseling patient:: 25 - 35 minutes
[2022-01-01 07:54] LABS: ALT/SGPT 13 U/L (<40); AST/SGOT 42 U/L (<40); Albumin 3.3 gm/dL (3.2-5.2); Albumin/Globulin Ratio 1.1 (1.0-2.3); Alkaline Phosphatase 128 U/L (39-117); Bilirubin,Direct 0.6 mg/dL (<0.3); Bilirubin,Total 1.3 mg/dL (0.1-1.0); Blood Urea Nitrogen 17 mg/dL (6-20); Calcium 9.4 mg/dL (8.6-10.4); Carbon Dioxide 30 mmol/L (22-30); Chloride 91 mmol/L (96-108); Glomerular Filtration Rate 83; Glucose 96 mg/dL (70-105); Lactate Dehydrogenase 303 U/L (135-225); Phosphorous 4.1 mg/dL (2.5-4.5); Triglycerides 95 mg/dL (<150); Uric Acid 9.1 mg/dL (2.5-8.0)
[2022-01-01] MEDS ORDERED: acetaZOLAMIDE SOD 500 MG VIAL IV ONE (08:33)
[2022-01-01] MEDS ORDERED: FUROSEMIDE 40 MG/4 ML VIAL IV ONE (08:33)
[2022-01-01] MEDS: THIAMINE 100 MG TABLET PO SCH (09:26)
[2022-01-01] MEDS: DOCUSATE SODIUM 100 MG CAPSULE PO SCH ×2 (09:26→21:13)
[2022-01-01] MEDS: LISINOPRIL 2.5 MG TABLET PO SCH (09:26)
[2022-01-01] MEDS: POTASSIUM CHLORIDE 20 MEQ TABLET PO SCH (09:26)
[2022-01-01] MEDS: HEPARIN 5,000 UNIT/ML VIAL SQ SCH ×2 (09:27→21:12)
[2022-01-01] MEDS: METOPROLOL SUCCINATE 25 MG TAB.XL.24H PO SCH ×2 (09:28→21:12)
[2022-01-01] MEDS: MUPIROCIN OINT 2% 22GM NARES SCH ×2 (09:36→21:12)
[2022-01-01] MEDS: FUROSEMIDE 250 MG in 0.9 % SODIUM CHLORIDE 225 ML IV SCH (12:02)
[2022-01-01] MEDS: SENNOSIDES 1 TABLET PO SCH (21:12)
[2022-01-02] MEDS: FUROSEMIDE 250 MG in 0.9 % SODIUM CHLORIDE 225 ML IV SCH (05:47)
[2022-01-02] MEDS: ceFAZolin 1 GM VIAL IV SCH (05:47)
[2022-01-02] MEDS: 0.9 % SODIUM CHLORIDE 10 ML SYRINGE IV SCH (05:47)
[2022-01-02 06:37] LABS: ALT/SGPT 11 U/L (<40); AST/SGOT 42 U/L (<40); Albumin 3.2 gm/dL (3.2-5.2); Alkaline Phosphatase 136 U/L (39-117); Bilirubin,Direct 0.5 mg/dL (<0.3); Blood Urea Nitrogen 16 mg/dL (6-20); Calcium 9.4 mg/dL (8.6-10.4); Carbon Dioxide 27 mmol/L (22-30); Chloride 96 mmol/L (96-108); Globulin 3.1 gm/dL (2.2-3.7); Glomerular Filtration Rate 83; Glucose 128 mg/dL (70-105); Lactate Dehydrogenase 304 U/L (135-225); Phosphorous 3.9 mg/dL (2.5-4.5); Triglycerides 94 mg/dL (<150); Uric Acid 8.4 mg/dL (2.5-8.0)
--- NOTE | 2022-01-02 08:28 | Internal Med Progress Note ---
SUBJECTIVE Subjective Patient information: Note initiated : 01/02/22 at 8:25 am Service Date, if different from initiated Date: [] Patient: Wilner Romero 41 y/o M admitted on 12/24/21 for cellulitis not going away. Chief Complaint: [] Interval history: Mr. Romero is a 41 year old M history of meth use, CHF, presenting with abdominal and scrotal swelling and pain. He presented to our ED 2 weeks ago for similar complaints, was being diagnosed with bilateral epididymis, and was being discharged home with oral doxycycline. He stated that he finished the antibiotics but the swelling and pain persist and get worse so he returned to our ED today for reevaluation and treatments. He is committing of lower abdominal and scrotal swelling and pain, the nature of the pain is " distention", mild to moderate. He denies any fever, chills, or diaphoresis. He is also commenting of bilateral leg swellings. He is adamant about his methamphetamine use and he did smoke it earlier this morning. Denies any shortness of breath. Denies any chest pain or palpitations. Vital signs significant for tachycardia heart rate in the 1 teens beats per minute, tachypnea rate of breathing up to the mid 30s breaths per minute. Labs significant for leukocytosis with WBC 14.3. Lactic acid 3.0. Potasssium 5.4. PCO creatinine 1.6. Procalcitonin 0.46. UA suggesting the presence of urinary tract infections. Urine drug screen positive for methamphetamine. CT abdomen pelvis showing severe and extensive subcutaneous edema with marked scrotal edema and enlargement. No soft tissue gas or focal abscess. No evidence for necrotizing fasciitis. Scrotal ultrasound showing normal testicles. Epididymis is suboptimally evaluated bilaterally but there is no definite abnormalities. Severe scrotal edema or cellulitis and marked scrotal thickening. 12/25: Afebrile overnight. Blood and urine culture no growth today. Patient is coming of mild to moderate lower abdominal pain as well as scrotal swelling and pain. Denies any fever chills or diaphoresis. He just being tired. Continue diuretics with IV Lasix. Continue broad-spectrum antibiotics with vancomycin and Zosyn. 2000 cc/day fluid restrictions. 12/26 Afebrile overnight, leukocytosis resolved. Renal function improved, replaced potassium. Increased Lasix from 20 mg to 40 mg IV BID, continue Vancomycin IV, started Ceftriaxone and discontinued Zosyn. MRSA nasal PCR positive. LFT's i mproving. Discontinued Toradol and Lisinopril for MAKENNA. 12/27 Afebrile overnight, renal function stable. The patient is diuresing but still markedly edematous. Transition to Lasix infusion, transfer to PCU for closer monitoring, cardiac exercise specialist while diuresing with IV Lasix. Check urine protein creatinine ratio, mildly elevated not consistent with nephrotic syndrome. Transthoracic echocardiogram result pending. Continues on vancomycin and ceftriaxone. Preliminary blood culture results showing no growth to date. LFTs improving. Hepatitis C antibody nonreactive, hepatitis B surface antigen negative. 12/28 Tachycardia overnight, low normal blood pressures, afebrile. Diuresing well, e lectrolytes and renal function stable, continues on Lasix infusion. Reduce Toprol from 50 mg twice daily to 25 mg twice daily for a low normal blood pressure, continue lisinopril 2.5 mg daily. Echocardiogram results show reduced LV ejection fraction of 15 to 20%. EKG did not show any acute ischemic changes, check troponin level, mildly elevated 0.03, repeat 0.03. Discussed with cardiology, Dr. De La Torre, he did not feel there was a need for urgent ischemic work-up for this patient. We will continue with diuresis until volume status has improved and focus on titrating goal-directed medical therapy to include beta-luiz, ATIF inhibitor, possible mineralocorticoid receptor antagonist. Started cefazolin for cellulitis, discontinued ceftriaxone. 12/29 Some improvement in volume status but progress has been slow. Renal function and electrolytes stable, increased Lasix infusion to 10 mg/h, change fluid restriction to 2 L/day. 12/30 Electrolytes and renal function stable. Unfortunately the patient has not keeping accurate urine output and refused a Becerra catheter however overall diur esis has improved and the patient's daily weights are decreasing. Will increase Lasix infusion to 12 mg/h and continue to monitor labs closely. 12/31 Patient sleepy this morning's resident several times. Good urine output. Still edematous. On room air. For contraction alkalosis. Bicarb is starting to creep up. BMP has shown significant improvement. 01/01 Patient feeling better, breathing better. Still has significant edema but much improved. Scrotal swelling still present but improving. 01/02 Patient continues to feel better. Swelling present but continues to improve. Patient is states he is at his normal weight prior to the recent worsening. He said he would be more compliant with taking his cardiac and diuretic medications daily. Review of Systems: denies headache/fever/chills/nausea/vomiting/chest or abdominal pain/cough/dyspnea/diarrhea. Otherwise see above. Constitutional Vitals: Vital Signs Temp Pulse Resp BP Pulse Ox O2 Del Method O2 Flow Rate 97 F 95 H 19 128/96 98 1 01/02/22 08:14 01/01/22 02:45 01/02/22 08:14 01/02/22 08:14 01/02/22 08:14 01/02/22 08:14 01/02/22 00:02 Period Temp Pulse Resp BP Sys/Triplett Pulse Ox O2 Del Method O2 Flow Rate Last 24 Hr 97 F-97.8 F 16-20 106-133/73-98 91-100 Nasal Cannula-Room Air 1-2 Intake and Output 01/01/22 01/02/22 01/02/22 21:59 05:59 13:59 Intake Total 360 600 Output Total 1020 725 Balance -660 -125 Weight 115.847 kg Intake & Output: Intake & Output 01/01/22 01/02/22 01/02/22 21:59 05:59 13:59 Intake Total 360 600 Output Total 1020 725 Balance -660 -125 Weight 115.847 kg Intake: Oral 360 600 Output: Void Amount 1020 725 Other: Meal Dinner applesauce x2 Percent of Meal Consumed 100% 100% Feeding Ability Independent Urine Appearance Clear Clear Urine Color Yellow Yellow Pale Urine Odor Normal Normal Exam: General: Alert, Awake, No acute Distress Eyes/N/T: EOMI, Head/Neck: neck supple, CV: RRR, No murmurs, Pulm: mild base rales b/l, no wheezing Abd: distended, soft, no guarding, +BS x4 : Improving scrotal and penis edema Ext: no clubbing/cyanosis, b/l LE edema 1-2+ Neuro: Alert, no focal deficits, moves all extremities, Skin: Improved warmth/redness/tenderness over lower abdomen, scrotum, groin, and bilateral lower extremities. OBJ DATA Labs CBC & Chem 7: 12/29/21 04:57 01/02/22 04:59 Labs: Abnormal Lab Results 01/02/22 01/01/22 12/31/21 04:59 04:51 07:37 Sodium 131 L Chloride 91 L Carbon Dioxide Glucose 128 H Uric Acid 8.4 H 9.1 H Total Bilirubin 1.3 H Direct Bilirubin 0.5 H 0.6 H GGT 158 H 145 H AST 42 H 42 H Alkaline Phosphatase 136 H 128 H Lactate Dehydrogenase 304 H 303 H NT-Pro-B Natriuret Pep 1460.0 H Albumin Albumin/Globulin Ratio 12/31/21 04:52 Sodium Chloride 93 L Carbon Dioxide 32 H Glucose 118 H Uric Acid 9.0 H Total Bilirubin 1.3 H Direct Bilirubin 0.6 H GGT 141 H AST 43 H Alkaline Phosphatase 128 H Lactate Dehydrogenase 328 H NT-Pro-B Natriuret Pep Albumin 3.0 L Albumin/Globulin Ratio 0.9 L Meds: Medications Acetaminophen (Acetaminophen 325 Mg Tablet) 650 mg PO Q6HP PRN; Protocol PRN Reason: Per Pain Protocol/Fever > 101 Albuterol/Ipratropium (Ipratropium/Albuterol 3 Ml Ampul.Neb) 3 ml NEB Q4HRT PRN PRN Reason: Wheezing Cefazolin Sodium (Cefazolin 1 Gm Vial) 2 gm IV Q8H [facility] Last Admin: 01/02/22 05:47 Dose: 2 gm Docusate Sodium (Docusate Sodium 100 Mg Capsule) 100 mg PO BID [facility] Last Admin: 01/01/22 21:13 Dose: 100 mg Heparin Sodium (Porcine) (Heparin 5,000 Unit/Ml Vial) 5,000 unit SQ Q12 [facility] Last Admin: 01/01/22 21:12 Dose: 5,000 unit Hydromorphone HCl (Hydromorphone 0.5 Mg/0.5 Ml Syringe) 0.5 mg IV Q4HP PRN; Protocol PRN Reason: Per Pain Protocol Furosemide 250 mg/ Sodium (Chloride) 250 mls @ 12 mls/hr IV Q20H [facility] Last Admin: 01/02/22 05:47 Dose: Not Given Lisinopril (Lisinopril 2.5 Mg Tablet) 2.5 mg PO DAILY [facility] Last Admin: 01/01/22 09:26 Dose: 2.5 mg Metoprolol Succinate (Metoprolol Succinate 25 Mg Tab.Xl.24h) 25 mg PO BID [facility] Last Admin: 01/01/22 21:12 Dose: 25 mg Mupirocin (Mupirocin Oint 2% 22gm) 1 dose NARES BID [facility] Last Admin: 01/01/22 21:12 Dose: 1 dose Ondansetron HCl (Ondansetron 4 Mg/2 Ml Vial) 4 mg IV Q6HP PRN PRN Reason: Nausea And Vomiting Oxycodone HCl (Oxycodone Hcl 5 Mg Tablet) 5 mg PO Q4HP PRN; Protocol PRN Reason: Per Pain Protocol Last Admin: 12/28/21 21:52 Dose: 5 mg Potassium Chloride (Potassium Chloride 20 Meq Tablet) 40 meq PO QAMCC [facility] Last Admin: 01/01/22 09:26 Dose: 40 meq Senna (Sennosides 1 Tablet) 2 tab PO HS [facility] Last Admin: 01/01/22 21:12 Dose: 2 tab Sodium Chloride (0.9 % Sodium Chloride 10 Ml Syringe) 10 ml IV Q8 [facility] Last Admin: 01/02/22 05:47 Dose: 10 ml Thiamine HCl (Thiamine 100 Mg Tablet) 100 mg PO DAILY [facility] Last Admin: 01/01/22 09:26 Dose: 100 mg A/P Narrative A/P Narrative: A: #Acute on chronic systolic(15-20%)/diastolic( ) CHF w/severe volume overload: -good UOP, on room air during day - #Sepsis: 2/2 scrotal cellulitis, resolved #MAKENNA: 2/2 sepsis, resolved #Elevated LFTs: 2/2 congestive hepatopathy, improved with diuresis #Methamphetamine use disorder: #Obesity:BMI 40 #Likely CHRISTIAN: Plan: -Cefazolin for cellulitis, complete 7-10 days of IV or oral antibiotic treatment -hold Lasix infusion for now, bolus lasix w/diamox today, closely monitor electrolytes and renal function, I&O, daily weights. -Toprol 25 mg twice daily, lisinopril 2.5 mg daily for HFrEF, titrate as tolerated -Regular low-sodium diet and fluid restriction -Referral to Dr. Thomas for substance use disorder -Disposition: Home when stable on BB/ACEI, Cardiology referral -referral to pulm for sleep study -ppx: Heparin SQ CODE STATUS: Full . Time Spent With Patient Time: Total time spent is greater than 50% in coordination of care (as documented) at patient's floor/unit and/or counseling patient:
[2022-01-02] MEDS ORDERED: acetaZOLAMIDE SOD 500 MG VIAL IV SCH (08:45)
[2022-01-02] MEDS ORDERED: FUROSEMIDE 40 MG/4 ML VIAL IV SCH (08:45)
[2022-01-02] MEDS: MUPIROCIN OINT 2% 22GM NARES SCH (09:24)
[2022-01-02] MEDS: METOPROLOL SUCCINATE 25 MG TAB.XL.24H PO SCH (09:25)
[2022-01-02] MEDS: DOCUSATE SODIUM 100 MG CAPSULE PO SCH (09:25)
[2022-01-02] MEDS: THIAMINE 100 MG TABLET PO SCH (09:25)
[2022-01-02] MEDS: HEPARIN 5,000 UNIT/ML VIAL SQ SCH (09:25)
[2022-01-02] MEDS: LISINOPRIL 2.5 MG TABLET PO SCH (09:25)
[2022-01-02] MEDS: POTASSIUM CHLORIDE 20 MEQ TABLET PO SCH (09:25)
== END 2022-01-02 11:22 | disposition home or self-care (01) | DRG 871 ==
LOC: ED 03:53 → MEDSUR 12:32 → ICU 12-27 13:07
PROVIDERS: ADMIT Internal Medicine; ATTEND Internal Medicine